=== PATIENT | female | born 1965 | race American Indian/Alaskan Native ===

== ENCOUNTER 2016-10-26 21:09 | Observation (INO) | payer OTHER, BC ==
[2016-10-26 21:10] VITALS: BMI 30.9
[2016-10-26] MEDS ORDERED: Sodium Chloride 0.9% 1,000 ML IV ONE ×2 (21:32)
[2016-10-26] MEDS ORDERED: (Novolin R) Insulin Human Regular 100 units/ml vial IV STA (21:32)
--- NOTE | 2016-10-26 21:32 | C.PDOC ---
History Of Present Illness A 51 y/o female presents to the ER c/o high blood sugar that was more than 600 today. Patient reports feeling SOB, frequent urination, weakness, and dry mouth. Denies fever, chills, chest pain, abdominal pain, palpitations, diaphoresis, or any other complaints. Time Seen by Provider: 10/26/16 21:29 History Per: Patient History/Exam Limitations: no limitations Onset/Duration Of Symptoms: Hrs Current Symptoms Are (Timing): Still Present Severity: Mild Current Diabetic Medications: Insulin Associated Infectious Symptoms: Urinary Frequency, Other (Dry mouth, weakness, SOB) Recent travel outside of the [place]: No Additional History Per: Patient Past Medical History Reviewed: Historical Data, Nursing Documentation, Vital Signs Vital Signs: Last Vital Signs Temp 98 F 10/26/16 21:28 Pulse 95 H 10/26/16 21:28 Resp 18 10/26/16 21:28 BP 151/81 H 10/26/16 21:28 Pulse Ox 95 10/26/16 22:41 - Medical History PMH: Anemia, Arthritis, Depression, Diabetes, HTN, Hypercholesterolemia, TIA Denies: Hepatitis, HIV, Chronic Kidney Disease, Seizures, Sexually Transmitted Disease - [facility] Procedures FLUOROSCOPY OF LEFT HEART USING LOW OSMOLAR CONTRAST (05/08/15) FLUOROSCOPY OF MULT COR ART USING L OSM CONTRAST (05/08/15) MEASURE OF CARDIAC SAMPL & PRESSURE, L HEART, PERC APPROACH (05/08/15) SPINAL TAP (09/04/12) Family History: States: Unknown Family Hx - Social History Hx Tobacco Use: No Hx Alcohol Use: No Hx Substance Use: No Review Of Systems Except As Marked, All Systems Reviewed And Found Negative. Constitutional: Positive for: Weakness. Negative for: Fever, Chills, Sweats ENT: Positive for: Other (Dry mouth) Cardiovascular: Negative for: Chest Pain, Palpitations Respiratory: Positive for: Shortness of Breath Gastrointestinal: Negative for: Abdominal Pain Genitourinary: Positive for: Frequency Physical Exam - Physical Exam Appears: Non-toxic, No Acute Distress, Other Skin: Warm, Dry Head: Atraumatic, Normacephalic Neck: Supple Cardiovascular: Rhythm Regular Respiratory: Normal Breath Sounds, No Rales, No Rhonchi, No Wheezing Gastrointestinal/Abdominal: Soft, No Tenderness Back: Normal Inspection, No CVA Tenderness Neurological/Psych: Oriented x3 (Awake and alert), Normal Speech, Normal Cognition, Other (No focal deficit) ED Course And Treatment - Laboratory Results Result Diagrams: 10/26/16 21:42 10/26/16 21:42 O2 Sat by Pulse Oximetry: 95 (RA) Pulse Ox Interpretation: Normal - Radiology CXR: Interpreted by Me, Viewed By Me CXR Interpretation: Yes: No Acute Disease. No: Infiltrates (essentially negative portable chest film.) Medical Decision Making Medical Decision Making: Impression: A 51 y/o female presents to the ER c/o high blood sugar that is more than 600 today. Plans: * EKG * ABG * Blood work up * CXR * Insulin * IV fluids * UA Disposition Discussed With Dr.: Chris Saeed Jr. Doctor Will See Patient In The: Hospital Counseled Patient/Family Regarding: Diagnosis - Disposition Disposition: HOSPITALIZED Disposition Time: 22:41 Condition: STABLE - POA Present On Arrival: None - Clinical Impression Clinical Impression: Hyperglycemia, Diabetes mellitus - Scribe Statement The provider has reviewed the documentation as recorded by the Scribsen corbett All medical record entries made by the Lisandraibsen were at my direction and personally dictated by me. I have reviewed the chart and agree that the record accurately reflects my personal performance of the history, physical exam, medical decision making, and the department course for this patient. I have also personally directed, reviewed, and agree with the discharge instructions and disposition.
[2016-10-26 21:45] LABS: BASO % 0.8 % (0.0-2.0); EOS # 0.1 K/uL (0.0-0.7); EOS % 1.2 % (0.0-4.0); HEMATOCRIT 36.2 % (34.0-47.0); LYMPH # 1.5 K/uL (1.0-4.3); LYMPH % 23.2 % (20.0-40.0); MEAN CORPUSCULAR HEMOGLOBIN 28.4 pg (27.0-31.0); MEAN CORPUSCULAR HGB CONC 34.2 g/dL (33.0-37.0); MEAN PLATELET VOLUME 8.2 fL (7.2-11.7); MONO # 0.4 K/uL (0.0-0.8); MONO % 6.9 % (0.0-10.0); RED CELL DISTRIBUTION WIDTH 13.3 % (11.5-14.5); WHITE BLOOD COUNT 6.3 K/uL (4.8-10.8)
[2016-10-26] MEDS ORDERED: Insulin Human Regular 100 UNIT in Sodium Chloride 0.9% 99 ML IV SCH (21:45)
[2016-10-26] MEDS ORDERED: (Novolin R) Insulin Human Regular 100 units/ml vial ONE (21:48)
[2016-10-26 21:53] LABS: CHLORIDE 95 mmol/L (98-107); SODIUM 131 mmol/L (132-148)
[2016-10-26 21:54] LABS: POTASSIUM 4.3 mmol/L (3.6-5.2)
[2016-10-26 21:56] LABS: ALKALINE PHOSPHATASE 122 U/L (38-126); ALT/SGPT 44 U/L (9-52); AST/SGOT 23 U/L (14-36); BILIRUBIN,TOTAL 0.8 mg/dL (0.2-1.3); BLOOD UREA NITROGEN 11 mg/dL (7-17); CARBON DIOXIDE 23 mmol/L (22-30); GFR AFRICAN-AMERICAN > 60
[2016-10-26 21:57] LABS: CALCIUM 9.5 mg/dl (8.6-10.4)
[2016-10-26 21:58] LABS: GLUCOSE,RANDOM 524 mg/dL (65-105)
[2016-10-26 22:04] LABS: ABG ALLEN TEST POS; ARTERIAL BLOOD HGB O2 SAT 93.1 % (95.0-98.0); CARBOXYHEMOGLOBIN 2.1 % (0.5-1.5); DRAW SITE RRA; HHB 3.4 % (0.0-5.0); METHEMOGLOBIN 1.4 % (0.0-3.0)
[2016-10-26 22:07] LABS: URINE BILIRUBIN NEGATIVE (NEGATIVE); URINE BLOOD NEGATIVE (NEGATIVE); URINE COLOR Colorless (YELLOW); URINE GLUCOSE (UA) 3+ mg/dL (Normal); URINE KETONE NEGATIVE (NEGATIVE); URINE LEUKOCYTE ESTERASE NEG Leu/uL (Negative); URINE PROTEIN NEGATIVE (NEGATIVE); URINE UROBILINOGEN NORMAL mg/dL (0.2-1.0); WBC URINE 2 /hpf (0-5)
--- NOTE | 2016-10-27 00:25 | CP.PCM.HP ---
History of Present Illness - History of Present Illness History of Present Illness: cc: "My sugar was high" Patient is a 51 year old female with PMHx DM, HTN, arthritis who presents to the ED with complaint of elevated blood sugar. Patient states around 8PM she checked her blood sugar and her glucometer gave her a high sugar warning of greater than 600. Patient states that her sugar normally is around 450 but not usually as high as 600. Patient states she gave herself 25 units of levemir at the time of the high reading and then came to the ED. Patient was given 8 units IV insulin in the ED and her sugar decreased from 524 to 320. Patient complains of headache, dry mouth, increased thirst and more frequent urination. Patient denies polyphagia. Patient also admits to alternating diarrhea and constipation. Patient reports increased stress since her daughter was murdered in 05/2015 and is caring for her grandchildren. 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 Patient admits she is eating more fast foods in between jobs and is not always able to make healthy choices. patient states she is using levemir 25 units daily instead of the prescribe 10 units because of her elevated sugars. Patient reports she only takes her lisinopril when she thinks she needs it. 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 Present on Admission - Present on Admission Any Indicators Present on Admission: Yes History of Uncontrolled Diabetes: Yes Review of Systems - Constitutional Constitutional: absent: Chills, Fever, Weight Loss - EENT Eyes: absent: Blurred Vision Nose/Mouth/Throat: absent: Nasal Congestion - Cardiovascular Cardiovascular: absent: Chest Pain, Dyspnea - Respiratory Respiratory: absent: Cough, Dyspnea - Gastrointestinal Gastrointestinal: Constipation, Loose Stools. absent: Nausea, Vomiting - Genitourinary Genitourinary: Urinary Frequency. absent: Dysuria - Musculoskeletal Musculoskeletal: Back Pain - Integumentary Integumentary: absent: Rash - Neurological Neurological: absent: Focal Weakness - Endocrine Endocrine: Polydipsia, Polyuria. absent: Polyphagia Past Patient History - Infectious Disease Hx of Infectious Diseases: None - Tetanus Immunizations Tetanus Immunization: Unknown - Past Medical History & Family History Past Medical History?: Yes - Past Social History Smoking Status: Never Smoked - CARDIAC Hx Hypercholesterolemia: Yes Hx Hypertension: Yes - PULMONARY Hx Tuberculosis: No - NEUROLOGICAL Hx Seizures: No Hx Transient Ischemic Attacks (TIA): Yes - HEENT Hx HEENT Problems: No - RENAL Hx Chronic Kidney Disease: No - ENDOCRINE/METABOLIC Hx Diabetes Mellitus Type 2: Yes - HEMATOLOGICAL/ONCOLOGICAL Hx Anemia: Yes Hx Human Immunodeficiency Virus (HIV): No - INTEGUMENTARY Hx Dermatological Problems: No - MUSCULOSKELETAL/RHEUMATOLOGICAL Hx Arthritis: Yes - GASTROINTESTINAL Hx Gastrointestinal Disorders: No - GENITOURINARY/GYNECOLOGICAL Hx Sexually Transmitted Disorders: No - PSYCHIATRIC Hx Depression: Yes Hx Substance Use: No - SURGICAL HISTORY Hx Section: Yes Hx Hysterectomy: Yes Hx Orthopedic Surgery: Yes (back) - ANESTHESIA Hx Anesthesia: Yes Hx Anesthesia Reactions: No Meds Allergies/Adverse Reactions: Allergies Allergy/AdvReac Type Severity Reaction Status Date / Time No Known Allergies Allergy Verified 05/08/15 15:41 Physical Exam - Constitutional Appears: Non-toxic, No Acute Distress - Head Exam Head Exam: ATRAUMATIC, NORMOCEPHALIC - Eye Exam Eye Exam: EOMI - ENT Exam ENT Exam: Mucous Membranes Dry - Respiratory Exam Respiratory Exam: Clear to Auscultation Bilateral, NORMAL BREATHING PATTERN - Cardiovascular Exam Cardiovascular Exam: +S1, +S2 - GI/Abdominal Exam GI & Abdominal Exam: Normal Bowel Sounds, Soft. absent: Tenderness - Extremities Exam Extremities exam: Positive for: normal inspection. Negative for: calf tenderness, pedal edema - Neurological Exam Neurological exam: Alert, Oriented x3 - Psychiatric Exam Psychiatric exam: Normal Affect - Skin Skin Exam: Dry, Warm Results - Vital Signs Recent Vital Signs: Last Vital Signs Temp 98.4 F 10/26/16 23:53 Pulse 82 10/26/16 23:53 Resp 18 10/26/16 23:53 BP 123/53 L 10/26/16 23:53 Pulse Ox 97 10/26/16 23:53 - Labs Result Diagrams: 10/26/16 21:42 10/26/16 21:42 Assessment & Plan - Assessment and Plan (Free Text) Assessment: Hyperglycemia, uncontrolled diabetes last known A1c 10.1 in 05/2015 will check new A1c will restart home meds metformin 1000mg BID, glimepiride 4mg BID, levemir 25u daily accuchecks ACHS with sliding scale coverage sugar decreased form 524 to 320 after 8 units IV insulin serum ketones negative UA with 3+ glucose anion gap 13 ABG pH 7.39 patient not acidotic will continue NS @ 100cc/h mod consistent carb diet diabetic education HTN contine home medications lisinopril 20mg daily will start HCTZ 12.5mg HLD continue home medication crestor 20mg daily Prophylactic measure protonix 40mg daily SCDs further management per Dr. Saeed
[2016-10-27 06:11] LABS: BASO % 0.7 % (0.0-2.0); EOS # 0.1 K/uL (0.0-0.7); EOS % 1.7 % (0.0-4.0); HEMATOCRIT 34.6 % (34.0-47.0); LYMPH # 1.3 K/uL (1.0-4.3); MEAN CELL VOLUME 82.3 fL (81.0-99.0); MEAN CORPUSCULAR HEMOGLOBIN 27.6 pg (27.0-31.0); MEAN CORPUSCULAR HGB CONC 33.5 g/dL (33.0-37.0); MEAN PLATELET VOLUME 8.4 fL (7.2-11.7); MONO # 0.4 K/uL (0.0-0.8); MONO % 8.1 % (0.0-10.0); NRBC % 0.1 % (0.0-2.0); RED CELL DISTRIBUTION WIDTH 13.1 % (11.5-14.5); WHITE BLOOD COUNT 4.9 K/uL (4.8-10.8)
[2016-10-27] MEDS ORDERED: (Novolin R) Insulin Human Regular 100 units/ml vial SC SCH (07:30)
[2016-10-27 07:48] LABS: CHLORIDE 105 mmol/L (98-107)
[2016-10-27 07:49] LABS: POTASSIUM 4.3 mmol/L (3.6-5.2); SODIUM 138 mmol/L (132-148)
[2016-10-27 07:51] LABS: BLOOD UREA NITROGEN 9 mg/dL (7-17); CARBON DIOXIDE 24 mmol/L (22-30); CHOLESTEROL 225 mg/dL (0-199); GFR AFRICAN-AMERICAN > 60
[2016-10-27 07:52] LABS: ALKALINE PHOSPHATASE 94 U/L (38-126); ALT/SGPT 39 U/L (9-52); AST/SGOT 21 U/L (14-36); CALCIUM 8.6 mg/dl (8.6-10.4); GLUCOSE,RANDOM 277 mg/dL (65-105)
[2016-10-27 07:54] LABS: THYROID STIMULATING HORMONE 2.11 mIU/L (0.46-4.68)
[2016-10-27 08:00] VITALS: BP 136/76; PULSE 73; RESP 20; TEMP 98.3; O2SAT 98
[2016-10-27] MEDS: (Novolin R) Insulin Human Regular 100 units/ml vial SC SCH ×3 (08:20→16:35)
--- NOTE | 2016-10-27 09:41 | CP.PCM.PN ---
Objective - Vital Signs/Intake and Output Vital Signs (last 24 hours): Temp Pulse Resp BP Pulse Ox 98.3 F 73 20 136/76 98 10/27/16 07:57 10/27/16 07:57 10/27/16 07:57 10/27/16 07:57 10/27/16 07:57 - Medications Medications: Current Medications Glimepiride (Amaryl) 4 mg PO BID [facility] Hydrochlorothiazide (Microzide) 12.5 mg PO DAILY [facility] Insulin Detemir (Levemir) 25 unit SC BID [facility] Insulin Human Regular (Novolin R) 0 unit SC ACHS [facility] PRN Reason: Protocol Last Admin: 10/27/16 08:20 Dose: 4 unit Lisinopril (Zestril) 20 mg PO DAILY [facility] Metformin HCl (Glucophage) 1,000 mg PO BID [facility] Pantoprazole Sodium (Protonix Ec Tab) 40 mg PO DAILY [facility] Pneumococcal Polyvalent Vaccine (Pneumovax 23 Vaccine) 0.5 ml IM .ONCE ONE Stop: 10/29/16 10:01 Rosuvastatin Calcium (Crestor) 20 mg PO HS BILL - Labs Labs: 10/27/16 06:00 10/27/16 06:00
[2016-10-27] MEDS ORDERED: Pantoprazole 40 mg EC Tab PO SCH (10:00)
[2016-10-27] MEDS ORDERED: Insulin Detemir 100 units/ml Vial (Levemir) SC SCH ×4 (10:00)
--- NOTE | 2016-10-27 10:09 | RAD ---
PROCEDURE: CHEST RADIOGRAPH, 1 VIEW HISTORY: Diabetic COMPARISON: Prior chest radiographs 05/08/2015 FINDINGS: LUNGS: Images captured add expiration phase. No definite acute infiltrate or pleural effusion identified or other significant interval change. PLEURA: No pneumothorax or pleural fluid seen. CARDIOVASCULAR: Normal. OSSEOUS STRUCTURES: No significant abnormalities. VISUALIZED UPPER ABDOMEN: Normal. OTHER FINDINGS: None. IMPRESSION: No definite acute interval infiltrate or pleural effusion.
[2016-10-27] MEDS ORDERED: Enoxaparin 40 mg Syringe SC SCH (11:45)
--- NOTE | 2016-10-27 16:23 | CP.PCM.DIS ---
Provider - Provider Date of Admission: 10/26/16 22:41 Attending physician: Chris Saeed Jr, MD Time Spent in preparation of Discharge (in minutes): 55 Hospital Course - Lab Results Lab Results: Most Recent Lab Values WBC 4.9 K/uL (4.8-10.8) 10/27/16 06:00 RBC 4.20 Mil/uL (3.80-5.20) 10/27/16 06:00 Hgb 11.6 g/dL (11.0-16.0) 10/27/16 06:00 Hct 34.6 % (34.0-47.0) 10/27/16 06:00 MCV 82.3 fL (81.0-99.0) 10/27/16 06:00 MCH 27.6 pg (27.0-31.0) 10/27/16 06:00 MCHC 33.5 g/dL (33.0-37.0) 10/27/16 06:00 RDW 13.1 % (11.5-14.5) 10/27/16 06:00 Plt Count 236 K/uL (130-400) 10/27/16 06:00 MPV 8.4 fL (7.2-11.7) 10/27/16 06:00 Neut % (Auto) 62.5 % (50.0-75.0) 10/27/16 06:00 Lymph % (Auto) 27.0 % (20.0-40.0) 10/27/16 06:00 [place] % (Auto) 8.1 % (0.0-10.0) 10/27/16 06:00 Eos % (Auto) 1.7 % (0.0-4.0) 10/27/16 06:00 Baso % (Auto) 0.7 % (0.0-2.0) 10/27/16 06:00 Neut # 3.1 K/uL (1.8-7.0) 10/27/16 06:00 Lymph # 1.3 K/uL (1.0-4.3) 10/27/16 06:00 [place] # 0.4 K/uL (0.0-0.8) 10/27/16 06:00 Eos # 0.1 K/uL (0.0-0.7) 10/27/16 06:00 Baso # 0.0 K/uL (0.0-0.2) 10/27/16 06:00 Puncture Site Rra 10/26/16 22:01 pCO2 40 mm/Hg (35-45) 10/26/16 22:01 pO2 69 mm/Hg (80-100) L 10/26/16 22:01 HCO3 24.3 mmol/L (21-28) 10/26/16 22:01 ABG pH 7.39 (7.35-7.45) 10/26/16 22:01 ABG Total CO2 25.4 mmol/L (22-28) 10/26/16 22:01 ABG O2 Saturation 96.5 % (95-98) 10/26/16 22:01 ABG Base Excess -0.7 mmol/L (-2.0-3.0) 10/26/16 22:01 ABG Hemoglobin 11.4 g/dL (11.7-17.4) L 10/26/16 22:01 ABG Carboxyhemoglobin 2.1 % (0.5-1.5) H 10/26/16 22:01 POC ABG HHb (Measured) 3.4 % (0.0-5.0) 10/26/16 22:01 ABG Methemoglobin 1.4 % (0.0-3.0) 10/26/16 22:01 Jet Test Pos 10/26/16 22:01 A-a O2 Difference 31.0 mm/Hg 10/26/16 22:01 Respiratory Index 0.4 10/26/16 22:01 Hgb O2 Saturation 93.1 % (95.0-98.0) L 10/26/16 22:01 Liter Flow 0 10/26/16 22:01 FiO2 21.0 % 10/26/16 22:01 Sodium 138 mmol/L (132-148) 10/27/16 06:00 Potassium 4.3 mmol/L (3.6-5.2) 10/27/16 06:00 Chloride 105 mmol/L (98-107) 10/27/16 06:00 Carbon Dioxide 24 mmol/L (22-30) 10/27/16 06:00 Anion Gap 13 (10-20) 10/27/16 06:00 BUN 9 mg/dL (7-17) 10/27/16 06:00 Creatinine 0.6 MG/DL (0.7-1.2) L 10/27/16 06:00 Est GFR ( Amer) > 60 10/27/16 06:00 Est GFR (Non-Af Amer) > 60 10/27/16 06:00 POC Glucose (mg/dL) 283 mg/dL (65-110) H 10/27/16 11:03 Random Glucose 277 mg/dL (65-105) H 10/27/16 06:00 Hemoglobin A1c 10.5 % (4.2-6.5) H 10/27/16 06:00 Calcium 8.6 mg/dl (8.6-10.4) 10/27/16 06:00 Total Bilirubin 1.0 mg/dL (0.2-1.3) 10/27/16 06:00 AST 21 U/L (14-36) 10/27/16 06:00 ALT 39 U/L (9-52) 10/27/16 06:00 Alkaline Phosphatase 94 U/L (38-126) 10/27/16 06:00 Total Protein 7.0 g/dL (6.3-8.3) 10/27/16 06:00 Albumin 3.4 g/dL (3.5-5.0) L 10/27/16 06:00 Globulin 3.5 gm/dL (2.2-3.9) 10/27/16 06:00 Albumin/Globulin Ratio 1.0 (1.0-2.1) 10/27/16 06:00 Triglycerides 231 mg/dL (0-149) H D 10/27/16 06:00 Cholesterol 225 mg/dL (0-199) H 10/27/16 06:00 LDL Cholesterol Direct 159 mg/dL (0-129) H 10/27/16 06:00 HDL Cholesterol 34 mg/dL (30-70) 10/27/16 06:00 TSH 3rd Generation 2.11 mIU/L (0.46-4.68) 10/27/16 06:00 Urine Color Colorless (YELLOW) 10/26/16 21:55 Urine Clarity Clear (Clear) 10/26/16 21:55 Urine pH 6.0 (5.0-8.0) 10/26/16 21:55 Ur Specific [place] 1.020 (1.003-1.030) 10/26/16 21:55 Urine Protein Negative mg/dL (NEGATIVE) 10/26/16 21:55 Urine Glucose (UA) 3+ mg/dL (Normal) H 10/26/16 21:55 Urine Ketones Negative mg/dL (NEGATIVE) 10/26/16 21:55 Urine Blood Negative (NEGATIVE) 10/26/16 21:55 Urine Nitrate Negative (NEGATIVE) 10/26/16 21:55 Urine Bilirubin Negative (NEGATIVE) 10/26/16 21:55 Urine Urobilinogen Normal mg/dL (0.2-1.0) 10/26/16 21:55 Ur Leukocyte Esterase Neg Jennyfer/uL (Negative) 10/26/16 21:55 Urine WBC (Auto) 2 /hpf (0-5) 10/26/16 21:55 Serum Ketones Negative (NEGATIVE) 10/26/16 21:42 - Hospital Course Hospital Course: Upon Admission: cc: "My sugar was high" Patient is a 51 year old female with PMHx DM, HTN, arthritis who presents to the ED with complaint of elevated blood sugar. Patient states around 8PM she checked her blood sugar and her glucometer gave her a high sugar warning of greater than 600. Patient states that her sugar normally is around 450 but not usually as high as 600. Patient states she gave herself 25 units of levemir at the time of the high reading and then came to the ED. Patient was given 8 units IV insulin in the ED and her sugar decreased from 524 to 320. Patient complains of headache, dry mouth, increased thirst and more frequent urination. Patient denies polyphagia. Patient also admits to alternating diarrhea and constipation. Patient reports increased stress since her daughter was murdered in 05/2015 and is caring for her grandchildren. 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 Patient admits she is eating more fast foods in between jobs and is not always able to make healthy choices. patient states she is using levemir 25 units daily instead of the prescribe 10 units because of her elevated sugars. Patient reports she only takes her lisinopril when she thinks she needs it. 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 Throughout Hospital Course: Patient was admitted for hyperglycemia. Patient was given insulin the ED to reduce the high blood sugar. sugar decreased form 524 to 320 after 8 units IV insulin. serum ketones negative. UA with 3+ glucose anion gap 13 ABG pH 7.39 patient not acidotic. HGA1C was 10.5 which has increased from 10.1 on 02/2016. Patient's levemir was increased to 30units SC BID. Patient is to follow up with Dr. Saeed for closer glucose control. This is a brief summary of the patient's hospital course. Please review EMR. Discharge Exam - Head Exam Head Exam: ATRAUMATIC, NORMOCEPHALIC - Eye Exam Eye Exam: EOMI, Normal appearance, PERRL Pupil Exam: NORMAL ACCOMODATION - ENT Exam ENT Exam: Normal Exam - Respiratory Exam Respiratory Exam: Clear to PA & Lateral, NORMAL BREATHING PATTERN. absent: Decreased Breath Sounds - Cardiovascular Exam Cardiovascular Exam: REGULAR RHYTHM, RRR - GI/Abdominal Exam GI & Abdominal Exam: Normal Bowel Sounds, Soft. absent: Distended, Tenderness - Extremities Exam Extremities exam: normal inspection, pedal pulses present - Neurological Exam Neurological exam: Alert, CN II-XII Intact, Oriented x3 - Psychiatric Exam Psychiatric exam: Normal Affect, Normal Mood - Skin Skin Exam: Dry, Intact, Normal Color, Warm Discharge Plan - Discharge Medications Prescriptions: Insulin Detemir [Levemir] 30 unit SC Q12 #1 vial - Follow Up Plan Condition: STABLE Disposition: HOME/ ROUTINE Instructions: Diabetic Ketoacidosis (DC), Diabetic Ketoacidosis (GEN) Additional Instructions: Patient is to continue taking her Metformin, Glimepiride, lisinopril, AND start taking levemir 30 units every 12 hours. If your sugars are continuously higher than 200, please call. Dr. Saeed. Please control your diet to better help your sugars go down. Follow up with Dr. Saeed in 1 week. Please return to the ED if your symptoms worsen or return.
--- NOTE | 2016-10-28 12:30 | CARD ---
APPROVED REPORT EKG Measurement Heart [id number] <Conclusion> Normal sinus rhythm Moderate voltage criteria for LVH, may be normal variant Borderline ECG
[2016-10-29] MEDS ORDERED: Pneumococcal 23-Valent Vaccine IM ONE (10:00)
== END 2016-10-27 18:00 | disposition home or self-care (01) ==
LOC: C.ER 21:09 → C.9E 22:41 → INTOOBSV 22:41 → C.3T 23:11
PROVIDERS: ADMIT Internal Medicine; ATTEND Internal Medicine
DX: E11.65 Type 2 diabetes mellitus with hyperglycemia (principal); I10 Essential (primary) hypertension; M19.90 Unspecified osteoarthritis, unspecified site; K59.00 Constipation, unspecified; R19.7 Diarrhea, unspecified; Z98.1 Arthrodesis status; Z83.3 Family history of diabetes mellitus; Z82.49 Family history of ischemic heart disease and other diseases of the circulatory system; Z80.0 Family history of malignant neoplasm of digestive organs; E78.5 Hyperlipidemia, unspecified
CPT/HCPCS: 36415; 71010; 80053; 80061; 81001; 82009; 82803; 82948; 83036; 84443; 85025; 93005; 96374; 99283; G0378; J1650; J7040

== ENCOUNTER 2017-07-06 13:20 | Observation (INO) | payer OTHER, BC ==
[2017-07-06 13:21] VITALS: BMI 30.9
[2017-07-06 13:58] LABS: BASO % 0.6 % (0.0-2.0); EOS # 0.1 K/uL (0.0-0.7); EOS % 1.1 % (0.0-4.0); HEMOGLOBIN 12.4 g/dL (11.0-16.0); LYMPH # 1.1 K/uL (1.0-4.3); LYMPH % 23.8 % (20.0-40.0); MEAN CELL VOLUME 82.1 fL (81.0-99.0); MEAN CORPUSCULAR HEMOGLOBIN 28.1 pg (27.0-31.0); MEAN CORPUSCULAR HGB CONC 34.3 g/dL (33.0-37.0); MEAN PLATELET VOLUME 8.6 fL (7.2-11.7); MONO # 0.4 K/uL (0.0-0.8); MONO % 7.9 % (0.0-10.0); NEUT # 3.2 K/uL (1.8-7.0); NEUT % 66.6 % (50.0-75.0); NRBC % 0.1 % (0.0-2.0); RBC 4.41 Mil/uL (3.80-5.20); RED CELL DISTRIBUTION WIDTH 13.5 % (11.5-14.5); WHITE BLOOD COUNT 4.8 K/uL (4.8-10.8)
[2017-07-06 14:29] LABS: ALB/GLOB RATIO 1.1 (1.0-2.1); ALBUMIN 4.2 g/dL (3.5-5.0); ALT/SGPT 44 U/L (9-52); AST/SGOT 36 U/L (14-36); BLOOD UREA NITROGEN 12 mg/dL (7-17); CALCIUM 9.4 mg/dl (8.6-10.4); GFR AFRICAN-AMERICAN > 60; GFR NON-AFRICAN AMERICAN > 60
[2017-07-06] MEDS ORDERED: Sodium Chloride 0.9% 1,000 ML IV ONE (14:33)
--- NOTE | 2017-07-06 15:22 | C.PDOC ---
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 At ED patient reports she developed headache, cramping leg pain and states she feels "weak". Chest pain is on left side and denies trauma, sob, nausea, vomiting, cough or any other complaints at this time. Time Seen by Provider: 07/06/17 13:38 Chief Complaint (Nursing): Medical Clearance History Per: Patient History/Exam Limitations: no limitations Onset/Duration Of Symptoms: Hrs Current Symptoms Are (Timing): Still Present Past Medical History Reviewed: Historical Data, Nursing Documentation, Vital Signs Vital Signs: Last Vital Signs Temp 98.5 F 07/06/17 16:58 Pulse 76 07/06/17 16:58 Resp 19 07/06/17 16:58 BP 175/82 H 07/06/17 16:58 Pulse Ox 96 07/06/17 16:58 - Medical History PMH: Anemia, Arthritis, Back Problems (SPINAL FUSION), Depression, Diabetes, HTN , Hypercholesterolemia, TIA Surgical History: No Surg Hx - [facility] Procedures FLUOROSCOPY OF LEFT HEART USING LOW OSMOLAR CONTRAST (05/08/15) FLUOROSCOPY OF MULT COR ART USING L OSM CONTRAST (05/08/15) MEASURE OF CARDIAC SAMPL & PRESSURE, L HEART, PERC APPROACH (05/08/15) SPINAL TAP (09/04/12) Family History: States: No Known Family Hx - Social History Hx Tobacco Use: No Hx Alcohol Use: No Hx Substance Use: No Review Of Systems Constitutional: Negative for: Fever, Chills Cardiovascular: Positive for: Chest Pain Gastrointestinal: Negative for: Nausea, Vomiting Musculoskeletal: Positive for: Back Pain, Leg Pain Skin: Negative for: Rash Neurological: Positive for: Headache Physical Exam - Physical Exam Appears: Non-toxic, No Acute Distress Skin: Warm, Dry, No Rash Head: Atraumatic, Normacephalic Eye(s): bilateral: Normal Inspection, PERRL, EOMI Oral Mucosa: Moist Throat: No Erythema, No Exudate Neck: Normal ROM, Supple Chest: Symmetrical, No Tenderness Cardiovascular: Rhythm Regular, No Friction Rub, No Murmur Respiratory: Normal Breath Sounds, No Rales, No Rhonchi, No Wheezing Gastrointestinal/Abdominal: Soft, No Tenderness, No Guarding, No Rebound Back: Normal Inspection, No CVA Tenderness Extremity: Normal ROM, Capillary Refill (<2 seconds), No Swelling Neurological/Psych: Oriented x3, Normal Speech, Normal Cognition Gait: Steady ED Course And Treatment - Laboratory Results Result Diagrams: 07/06/17 13:42 07/06/17 13:42 ECG: Interpreted By Me ECG Rhythm: Sinus Rhythm ECG Interpretation: Normal Rate From EC (bpm) O2 Sat by Pulse Oximetry: 99 (RA) Pulse Ox Interpretation: Normal - Radiology CXR: Interpreted by Me CXR Interpretation: Yes: No Acute Disease. No: Infiltrates Medical Decision Making Medical Decision Making: Plan: IV fluids, Aspirin and Tylenol administered Progress: D/w Dr. Starr who is covering for Dr. 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 - Scribe Statement The provider has reviewed the documentation as recorded by the Scribe Carol Perez All medical record entries made by the Richard were at my direction and personally dictated by me. I have reviewed the chart and agree that the record accurately reflects my personal performance of the history, physical exam, medical decision making, and the department course for this patient. I have also personally directed, reviewed, and agree with the discharge instructions and disposition.
[2017-07-06 16:37] LABS: HCG,QUALITATIVE URINE NEGATIVE (NEGATIVE)
[2017-07-06] MEDS ORDERED: (Novolin R) Insulin Human Regular 100 units/ml vial IV STA (16:42)
[2017-07-06 16:43] LABS: URINE BACTERIA OCC (<OCC); URINE BILIRUBIN NEGATIVE (NEGATIVE); URINE BLOOD NEGATIVE (NEGATIVE); URINE CLARITY Clear (Clear); URINE COLOR Yellow (YELLOW); URINE GLUCOSE (UA) 3+ mg/dL (Normal); URINE LEUKOCYTE ESTERASE NEG Leu/uL (Negative); URINE PROTEIN 2+ mg/dL (NEGATIVE); URINE UROBILINOGEN NORMAL mg/dL (0.2-1.0)
[2017-07-06] MEDS ORDERED: Morphine 4 MG/ML VIAL ONE (17:17)
[2017-07-06] MEDS ORDERED: (Novolin R) Insulin Human Regular 100 units/ml vial ONE (17:46)
--- NOTE | 2017-07-06 17:54 | RAD ---
HISTORY: COMPARISON: 10/26/2016. TECHNIQUE: Chest PA and lateral FINDINGS: LINES AND TUBES: None. LUNG AND PLEURA: The lungs are well inflated and clear. No pleural effusion or pneumothorax. HEART AND MEDIASTINUM: The heart is not enlarged. The hilar and mediastinal contours are within normal limits. SKELETAL STRUCTURES: The bony structures are within normal limits for the patient's age. VISUALIZED UPPER ABDOMEN: Normal. OTHER FINDINGS: None. IMPRESSION: No active pulmonary disease.
[2017-07-06] MEDS: Sodium Chloride 0.9% 1,000 ML IV SCH (22:10)
[2017-07-06] MEDS ORDERED: Sodium Chloride 0.9% 1,000 ML ONE (22:13)
[2017-07-06 22:33] VITALS: O2SAT 95
[2017-07-06] MEDS: (Novolin R) Insulin Human Regular 100 units/ml vial SC SCH (22:33)
[2017-07-06] MEDS: Insulin Detemir 100 units/ml Vial (Levemir) SC SCH (22:57)
[2017-07-07 07:11] LABS: HEMOGLOBIN 11.5 g/dL (11.0-16.0); MEAN CORPUSCULAR HEMOGLOBIN 27.9 pg (27.0-31.0); MEAN PLATELET VOLUME 8.5 fL (7.2-11.7); RBC 4.13 Mil/uL (3.80-5.20); RED CELL DISTRIBUTION WIDTH 13.4 % (11.5-14.5); WHITE BLOOD COUNT 4.3 K/uL (4.8-10.8)
[2017-07-07 07:45] LABS: BLOOD UREA NITROGEN 10 mg/dL (7-17); CALCIUM 8.8 mg/dl (8.6-10.4); GFR AFRICAN-AMERICAN > 60; GFR NON-AFRICAN AMERICAN > 60
[2017-07-07] MEDS: (Novolin R) Insulin Human Regular 100 units/ml vial SC SCH ×4 (08:30→21:11)
[2017-07-07 08:56] LABS: CK-MB 0.35 ng/mL (0.0-3.38)
[2017-07-07] MEDS: Insulin Detemir 100 units/ml Vial (Levemir) SC SCH ×2 (10:33→21:27)
[2017-07-07] MEDS: Enoxaparin 40 mg Syringe SC SCH (10:33)
--- NOTE | 2017-07-07 12:35 | CP.PCM.HP ---
History of Present Illness - History of Present Illness History of Present Illness: Chief Complaint : Chest pain History Of Present Illness Patient is a middle aged AA female with history of TIA, HTN, DM on oral medications , complaince is questionable and High Cholesterols presents to ED with c/o onset back pain radiating to front chest area 1 hour HOT [employer]. At ED patient reports she developed headache, cramping leg pain and states she feels "weak". Chest pain is on left side and denies trauma, sob, nausea, vomiting, cough or any other complaints at this time.there is no h/o nausea, vomiting, hempptysis, melena Present on Admission - Present on Admission Any Indicators Present on Admission: Yes Review of Systems - Review of Systems Systems not reviewed;Unavailable: Acuity of Condition - Constitutional Constitutional: Fatigue, Lethargy - EENT Eyes: absent: As Per HPI, Blind Spots, Blurred Vision, Change in Vision, Decreased Night Vision, Diplopia, Discharge, Dry Eye, Exophthalmos, Floaters, Irritation, Itchy Eyes, Loss of Peripheral Vision, Pain, Photophobia, Requires Corrective Lenses, Sees Flashes, Spots in Vision, Tunnel Vision, Other Visual Disturbances, Loss of Vision, Other Ears: absent: As Per HPI, Decreased Hearing, Ear Discharge, Ear Pain, Tinnitus, Abnormal Hearing, Disequilibrium, Dizziness, Other Nose/Mouth/Throat: absent: As Per HPI, Epistaxis, Nasal Congestion, Nasal Discharge, Nasal Obstruction, Nasal Trauma, Nose Pain, Post Nasal Drip, Sinus Pain, Sinus Pressure, Bleeding Gums, Change in Voice, Dental Pain, Dry Mouth, Dysphagia, Halitosis, Hoarsness, Lip Swelling, Mouth Lesions, Mouth Pain, Odynophagia, Sore Throat, Throat Swelling, Tongue Swelling, Facial Pain, Neck Pain, Neck Mass, Other - Breasts Breasts: absent: As Per HPI, Change in Shape, Mass, Pain, Nipple Discharge, Nipple Inversion, Skin Changes, Swelling, Other - Cardiovascular Cardiovascular: Chest Pain, Dyspnea. absent: As Per HPI, Acrocyanosis, Chest Pain at Rest, Chest Pain with Activity, Claudication, Diaphoresis, Dyspnea on Exertion, Edema, Irregular Heart Rhythm, Pain Radiating to Arm/Neck/Jaw, Leg Edema, Leg Ulcers, Lightheadedness, Orthopnea, Palpitations, Paroxysmal Nocturnal Dyspnea, Pedal Edema, Radiating Pain, Rapid Heart Rate, Slow Heart Rate, Syncope, Other - Respiratory Respiratory: absent: As Per HPI, Cough, Dyspnea, Hemoptysis, Dyspnea on Exertion , Wheezing, Snoring, Stridor, Pain on Inspiration, Chest Congestion, Excessive Mucous Production, Change in Mucous Color, Pain with Coughing, Other - Gastrointestinal Gastrointestinal: absent: As Per HPI, Abdominal Pain, Belching, Bloating, Change in Bowel Habits, Change in Stool Character, Coffee Ground Emesis, Constipation, Cramping, Diarrhea, Dyspepsia, Dysphagia, Early Satiety, Excessive Flatus, Fecal Incontinence, Heartburn, Hematemesis, Hematochezia, Loose Stools, Melena, Nausea, Odynophagia, Temesmus, Vomiting, Other Past Patient History - Infectious Disease Hx of Infectious Diseases: None - Tetanus Immunizations Tetanus Immunization: Unknown - Past Medical History & Family History Past Medical History?: Yes - Past Social History Smoking Status: Never Smoked - CARDIAC Hx Hypercholesterolemia: Yes Hx Hypertension: Yes - PULMONARY Hx Respiratory Disorders: No Hx Tuberculosis: No - NEUROLOGICAL Hx Transient Ischemic Attacks (TIA): Yes - HEENT Hx HEENT Problems: No - RENAL Hx Chronic Kidney Disease: No - ENDOCRINE/METABOLIC Hx Endocrine Disorders: Yes Hx Diabetes Mellitus Type 2: Yes - HEMATOLOGICAL/ONCOLOGICAL Hx Anemia: Yes - INTEGUMENTARY Hx Dermatological Problems: No - MUSCULOSKELETAL/RHEUMATOLOGICAL Hx Arthritis: Yes - GASTROINTESTINAL Hx Gastrointestinal Disorders: No - GENITOURINARY/GYNECOLOGICAL Hx Sexually Transmitted Disorders: No - PSYCHIATRIC Hx Depression: Yes Hx Substance Use: No - SURGICAL HISTORY Hx Surgeries: Yes Hx Section: Yes Hx Hysterectomy: Yes Hx Orthopedic Surgery: Yes (back) - ANESTHESIA Hx Anesthesia: Yes Hx Anesthesia Reactions: No Hx Malignant Hyperthermia: No Meds Allergies/Adverse Reactions: Allergies Allergy/AdvReac Type Severity Reaction Status Date / Time No Known Allergies Allergy Verified 07/06/17 13:36 Physical Exam - Constitutional Appears: No Acute Distress - Head Exam Head Exam: ATRAUMATIC, NORMAL INSPECTION, NORMOCEPHALIC - Eye Exam Eye Exam: EOMI, Normal appearance, PERRL Pupil Exam: NORMAL ACCOMODATION, PERRL - Respiratory Exam Respiratory Exam: Clear to Auscultation Bilateral, NORMAL BREATHING PATTERN - Cardiovascular Exam Cardiovascular Exam: REGULAR RHYTHM - GI/Abdominal Exam GI & Abdominal Exam: Normal Bowel Sounds, Soft. absent: Tenderness - Rectal Exam Rectal Exam: Deferred - Extremities Exam Extremities exam: Positive for: normal inspection - Back Exam Back exam: paraspinal tenderness - Neurological Exam Neurological exam: Alert, CN II-XII Intact, Normal Gait, Oriented x3, Reflexes Normal - Psychiatric Exam Psychiatric exam: Anxious - Skin Skin Exam: Dry, Intact, Normal Color, Warm Results - Vital Signs Recent Vital Signs: Last Vital Signs Temp 98.0 F 07/07/17 07:05 Pulse 71 07/07/17 07:05 Resp 20 07/07/17 07:05 BP 131/57 L 07/07/17 07:05 Pulse Ox 95 07/07/17 07:05 - Labs Result Diagrams: 07/07/17 07:04 07/07/17 07:04 Labs: Laboratory Results - last 24 hr 07/06/17 07/06/17 07/06/17 13:35 13:42 13:42 WBC 4.8 RBC 4.41 Hgb 12.4 Hct 36.2 MCV 82.1 MCH 28.1 MCHC 34.3 RDW 13.5 Plt Count 235 MPV 8.6 Neut % (Auto) 66.6 Lymph % (Auto) 23.8 [place] % (Auto) 7.9 Eos % (Auto) 1.1 Baso % (Auto) 0.6 Neut # (Auto) 3.2 Lymph # (Auto) 1.1 [place] # (Auto) 0.4 Eos # (Auto) 0.1 Baso # (Auto) 0.0 Sodium 138 Potassium 4.2 Chloride 100 Carbon Dioxide 26 Anion Gap 17 BUN 12 Creatinine 0.7 Est GFR ( Amer) > 60 Est GFR (Non-Af Amer) > 60 POC Glucose (mg/dL) 330 H Random Glucose 429 H* D Calcium 9.4 Total Bilirubin 0.8 AST 36 ALT 44 Alkaline Phosphatase 121 Total Creatine Kinase CK-MB (Mass) Troponin I < 0.0120 Total Protein 7.9 Albumin 4.2 Globulin 3.8 Albumin/Globulin Ratio 1.1 Urine Color Urine Clarity Urine pH Ur Specific [place] Urine Protein Urine Glucose (UA) Urine Ketones Urine Blood Urine Nitrate Urine Bilirubin Urine Urobilinogen Ur Leukocyte Esterase Urine WBC (Auto) Urine RBC (Auto) Urine Bacteria Urine HCG, Qual Serum Ketones 07/06/17 07/06/17 07/06/17 13:42 16:24 17:00 WBC RBC Hgb Hct MCV MCH MCHC RDW Plt Count MPV Neut % (Auto) Lymph % (Auto) [place] % (Auto) Eos % (Auto) Baso % (Auto) Neut # (Auto) Lymph # (Auto) [place] # (Auto) Eos # (Auto) Baso # (Auto) Sodium Potassium Chloride Carbon Dioxide Anion Gap BUN Creatinine Est GFR ( Amer) Est GFR (Non-Af Amer) POC Glucose (mg/dL) 258 H Random Glucose Calcium Total Bilirubin AST ALT Alkaline Phosphatase Total Creatine Kinase CK-MB (Mass) Troponin I Total Protein Albumin Globulin Albumin/Globulin Ratio Urine Color Yellow Urine Clarity Clear Urine pH 7.0 Ur Specific [place] 1.018 Urine Protein 2+ H Urine Glucose (UA) 3+ H Urine Ketones Negative Urine Blood Negative Urine Nitrate Negative Urine Bilirubin Negative Urine Urobilinogen Normal Ur Leukocyte Esterase Neg Urine WBC (Auto) 2 Urine RBC (Auto) < 1 Urine Bacteria Occ H Urine HCG, Qual Negative Serum Ketones Negative 07/06/17 07/06/17 07/06/17 18:58 22:27 22:27 WBC RBC Hgb Hct MCV MCH MCHC RDW Plt Count MPV Neut % (Auto) Lymph % (Auto) [place] % (Auto) Eos % (Auto) Baso % (Auto) Neut # (Auto) Lymph # (Auto) [place] # (Auto) Eos # (Auto) Baso # (Auto) Sodium Potassium Chloride Carbon Dioxide Anion Gap BUN Creatinine Est GFR ( Amer) Est GFR (Non-Af Amer) POC Glucose (mg/dL) 320 H 255 H 255 H Random Glucose Calcium Total Bilirubin AST ALT Alkaline Phosphatase Total Creatine Kinase CK-MB (Mass) Troponin I Total Protein Albumin Globulin Albumin/Globulin Ratio Urine Color Urine Clarity Urine pH Ur Specific [place] Urine Protein Urine Glucose (UA) Urine Ketones Urine Blood Urine Nitrate Urine Bilirubin Urine Urobilinogen Ur Leukocyte Esterase Urine WBC (Auto) Urine RBC (Auto) Urine Bacteria Urine HCG, Qual Serum Ketones 07/07/17 07/07/17 07/07/17 02:08 06:39 07:04 WBC 4.3 L RBC 4.13 Hgb 11.5 Hct 33.9 L MCV 82.0 MCH 27.9 MCHC 34.0 RDW 13.4 Plt Count 220 MPV 8.5 Neut % (Auto) Lymph % (Auto) [place] % (Auto) Eos % (Auto) Baso % (Auto) Neut # (Auto) Lymph # (Auto) [place] # (Auto) Eos # (Auto) Baso # (Auto) Sodium Potassium Chloride Carbon Dioxide Anion Gap BUN Creatinine Est GFR ( Amer) Est GFR (Non-Af Amer) POC Glucose (mg/dL) 248 H 215 H Random Glucose Calcium Total Bilirubin AST ALT Alkaline Phosphatase Total Creatine Kinase CK-MB (Mass) Troponin I Total Protein Albumin Globulin Albumin/Globulin Ratio Urine Color Urine Clarity Urine pH Ur Specific [place] Urine Protein Urine Glucose (UA) Urine Ketones Urine Blood Urine Nitrate Urine Bilirubin Urine Urobilinogen Ur Leukocyte Esterase Urine WBC (Auto) Urine RBC (Auto) Urine Bacteria Urine HCG, Qual Serum Ketones 07/07/17 07/07/17 07:04 11:23 WBC RBC Hgb Hct MCV MCH MCHC RDW Plt Count MPV Neut % (Auto) Lymph % (Auto) [place] % (Auto) Eos % (Auto) Baso % (Auto) Neut # (Auto) Lymph # (Auto) [place] # (Auto) Eos # (Auto) Baso # (Auto) Sodium 144 Potassium 3.9 Chloride 106 Carbon Dioxide 27 Anion Gap 15 BUN 10 Creatinine 0.7 Est GFR ( Amer) > 60 Est GFR (Non-Af Amer) > 60 POC Glucose (mg/dL) 192 H Random Glucose 211 H Calcium 8.8 Total Bilirubin AST ALT Alkaline Phosphatase Total Creatine Kinase 75 CK-MB (Mass) 0.35 Troponin I < 0.0120 Total Protein Albumin Globulin Albumin/Globulin Ratio Urine Color Urine Clarity Urine pH Ur Specific [place] Urine Protein Urine Glucose (UA) Urine Ketones Urine Blood Urine Nitrate Urine Bilirubin Urine Urobilinogen Ur Leukocyte Esterase Urine WBC (Auto) Urine RBC (Auto) Urine Bacteria Urine HCG, Qual Serum Ketones Assessment & Plan (1) Chest pain Assessment and Plan: rule out AR ECho is normal Status: Acute (2) HTN (hypertension) Status: Acute (3) Diabetes mellitus Assessment and Plan: insulin oral diabetic medication Status: Acute
--- NOTE | 2017-07-07 16:59 | CARD ---
APPROVED REPORT EXAM: Two-dimensional and M-mode echocardiogram with Doppler and color Doppler. Other Information Quality : GoodRhythm : INDICATION CVA/TIA Chest Pain RISK FACTORS Hypertension Diabetes 2D DIMENSIONS IVSd0.9 (0.7-1.1cm)LVDd4.2 (3.9-5.9cm) PWd1.1 (0.7-1.1cm)LVDs2.5 (2.5-4.0cm) FS (%) 41.7 %LVEF (%)65.0 (>50%) M-Mode DIMENSIONS Left Atrium (MM)3.54 (2.5-4.0cm)Aortic Root3.05 (2.2-3.7cm) Aortic Cusp Exc.2.26 (1.5-2.0cm) Mitral Valve MV E Rzwcqdif75.4cm/sMV A Ulozothh00.1cm/sE/A ratio0.7 TDI E/Lateral E'0.0E/Medial E'0.0 LEFT VENTRICLE The left ventricle is normal size. There is normal left ventricular wall thickness. The left ventricular function is normal. The left ventricular ejection fraction is within the normal range. There is normal LV segmental wall motion. Transmitral Doppler flow pattern is normal for age. RIGHT VENTRICLE The right ventricle is normal size. The right ventricular systolic function is normal. ATRIA The left atrium size is normal. The right atrium size is normal. AORTIC VALVE The aortic valve is normal in structure. No aortic regurgitation is present. MITRAL VALVE The mitral valve is normal in structure. There is no mitral valve regurgitation noted. TRICUSPID VALVE The tricuspid valve is normal in structure. There is no tricuspid valve regurgitation noted. PULMONIC VALVE The pulmonary valve is normal in structure. There is mild pulmonic valvular regurgitation. GREAT VESSELS The aortic root is normal in size. The IVC is normal in size and collapses >50% with inspiration. PERICARDIAL EFFUSION There is no pericardial effusion. <Conclusion> Normal bi-ventricular function. No significant valvularabnormality noted. No pericardial effusion.
[2017-07-07 18:17] LABS: CK-MB 0.43 ng/mL (0.0-3.38)
[2017-07-07] MEDS: Sodium Chloride 0.9% 1,000 ML IV SCH (21:28)
[2017-07-07] MEDS ORDERED: Magnesium Hydroxide Susp 30 ml UD PO PRN (22:39)
--- NOTE | 2017-07-08 01:11 | CP.PCM.PN ---
Subjective - Date & Time of Evaluation Date of Evaluation: 07/07/17 Time of Evaluation: 18:00 - Subjective Subjective: Pt seen and examined at bedside, chest pain is better, ECho, EKG normal, most likely non coronary chest pain, pt is on monitoring Objective - Vital Signs/Intake and Output Vital Signs (last 24 hours): Temp Pulse Resp BP Pulse Ox 97.8 F 73 18 119/71 95 07/07/17 16:00 07/07/17 23:55 07/07/17 16:00 07/07/17 16:00 07/07/17 16:00 Intake and Output: 07/07/17 07/08/17 18:59 06:59 Intake Total 800 1200 Balance 800 1200 - Medications Medications: Current Medications Amlodipine Besylate (Norvasc) 5 mg PO DAILY [facility] Last Admin: 07/07/17 10:32 Dose: 5 mg Aspirin (Ecotrin) 81 mg PO DAILY [facility] Last Admin: 07/07/17 10:33 Dose: 81 mg Enoxaparin Sodium (Lovenox) 40 mg SC DAILY [facility] Last Admin: 07/07/17 10:33 Dose: 40 mg Sodium Chloride (Sodium Chloride 0.9%) 1,000 mls @ 100 mls/hr IV .Q10H [facility] Last Admin: 07/07/17 21:28 Dose: 100 mls/hr Insulin Detemir (Levemir) 30 unit SC Q12 [facility] Last Admin: 07/07/17 21:27 Dose: 30 unit Insulin Human Regular (Novolin R) 0 unit SC ACHS [facility] PRN Reason: Protocol Last Admin: 07/07/17 21:11 Dose: Not Given Magnesium Hydroxide (Milk Of Magnesia) 30 ml PO DAILY PRN PRN Reason: Constipation Last Admin: 07/07/17 23:06 Dose: 30 ml Metformin HCl (Glucophage) 1,000 mg PO BID [facility] Last Admin: 07/07/17 18:16 Dose: 1,000 mg Rosuvastatin Calcium (Crestor) 10 mg PO HS [facility] Last Admin: 07/07/17 21:27 Dose: 10 mg - Labs Labs: 07/07/17 07:04 07/07/17 07:04 - Constitutional Appears: No Acute Distress - Head Exam Head Exam: ATRAUMATIC, NORMAL INSPECTION, NORMOCEPHALIC - Eye Exam Eye Exam: EOMI, Normal appearance, PERRL Pupil Exam: NORMAL ACCOMODATION, PERRL - Respiratory Exam Respiratory Exam: Clear to Ausculation Bilateral, NORMAL BREATHING PATTERN - Cardiovascular Exam Cardiovascular Exam: REGULAR RHYTHM, +S1, +S2. absent: Murmur - GI/Abdominal Exam GI & Abdominal Exam: Soft, Normal Bowel Sounds. absent: Tenderness - Neurological Exam Neurological Exam: Alert, Awake, CN II-XII Intact, Normal Gait, Oriented x3 - Psychiatric Exam Psychiatric exam: Normal Affect, Normal Mood Assessment and Plan (1) Chest pain Status: Acute (2) HTN (hypertension) Status: Acute (3) Diabetes mellitus Status: Acute
[2017-07-08 01:17] VITALS: BP 138/75; RESP 20; TEMP 97.6
[2017-07-08] MEDS: Sodium Chloride 0.9% 1,000 ML IV SCH ×2 (03:30→04:10)
[2017-07-08] MEDS ORDERED: Insulin Detemir 100 units/ml Vial (Levemir) SC SCH (06:33)
--- NOTE | 2017-07-08 08:54 | CP.PCM.PN ---
Subjective - Date & Time of Evaluation Date of Evaluation: 07/08/17 Time of Evaluation: 07:00 - Subjective Subjective: Pt seen and evaluated today alert, orientedx3, no sob or chest pains, NAD. Objective - Vital Signs/Intake and Output Vital Signs (last 24 hours): Temp Pulse Resp BP Pulse Ox 97.6 F 81 20 138/75 95 07/08/17 01:00 07/08/17 04:41 07/08/17 01:00 07/08/17 01:00 07/08/17 01:00 Intake and Output: 07/08/17 07/08/17 06:59 18:59 Intake Total 1200 Balance 1200 - Medications Medications: Current Medications Aspirin (Ecotrin) 81 mg PO DAILY [facility] Last Admin: 07/07/17 10:33 Dose: 81 mg Enoxaparin Sodium (Lovenox) 40 mg SC DAILY [facility] Last Admin: 07/07/17 10:33 Dose: 40 mg Insulin Detemir (Levemir) 34 unit SC Q12 [facility] Insulin Human Regular (Novolin R) 0 unit SC ACHS [facility] PRN Reason: Protocol Last Admin: 07/07/17 21:11 Dose: Not Given Losartan Potassium (Cozaar) 50 mg PO DAILY [facility] Magnesium Hydroxide (Milk Of Magnesia) 30 ml PO DAILY PRN PRN Reason: Constipation Last Admin: 07/07/17 23:06 Dose: 30 ml Metformin HCl (Glucophage) 1,000 mg PO BID [facility] Last Admin: 07/07/17 18:16 Dose: 1,000 mg Rosuvastatin Calcium (Crestor) 10 mg PO HS [facility] Last Admin: 07/07/17 21:27 Dose: 10 mg Sitagliptin Phosphate (Januvia) 100 mg PO DAILY [facility] - Labs Labs: 07/07/17 07:04 07/07/17 07:04 Assessment and Plan (1) Chest pain Status: Acute (2) HTN (hypertension) Status: Acute (3) Diabetes mellitus Status: Acute
[2017-07-08] MEDS: (Novolin R) Insulin Human Regular 100 units/ml vial SC SCH ×2 (09:00→13:09)
[2017-07-08] MEDS: Enoxaparin 40 mg Syringe SC SCH (09:49)
[2017-07-08 12:06] VITALS: PULSE 73
--- NOTE | 2017-07-08 17:55 | CP.PCM.PN ---
Subjective - Date & Time of Evaluation Date of Evaluation: 07/08/17 Time of Evaluation: 11:00 - Subjective Subjective: alert, orientedx3, no sob or chest pains, NAD. Objective - Vital Signs/Intake and Output Vital Signs (last 24 hours): Temp Pulse Resp BP Pulse Ox 97.6 F 73 20 138/75 95 07/08/17 01:00 07/08/17 07:52 07/08/17 01:00 07/08/17 01:00 07/08/17 01:00 Intake and Output: 07/08/17 07/08/17 06:59 18:59 Intake Total 1200 Balance 1200 - Labs Labs: 07/07/17 07:04 07/07/17 07:04 Assessment and Plan - Assessment and Plan (Free Text) Assessment: Patient admitted with hyperglycemia, chest pain, seen and examined. Alert and orientedx3, denies any sob or pain, blood sugar is more controlled. Discussed with DR Starr, plan to discharge home today. Advised to follow up with PMD in 1 week. Advised to keep close watch on her sugar levels.
--- NOTE | 2017-07-09 02:43 | CP.PCM.DIS ---
Provider - Provider Date of Admission: 07/06/17 16:51 Attending physician: David Starr MD Time Spent in preparation of Discharge (in minutes): 45 Diagnosis - Discharge Diagnosis (1) Chest pain Status: Acute (2) HTN (hypertension) Status: Acute (3) Diabetes mellitus Status: Acute Hospital Course - Lab Results Lab Results: Most Recent Lab Values WBC 4.3 K/uL (4.8-10.8) L 07/07/17 07:04 RBC 4.13 Mil/uL (3.80-5.20) 07/07/17 07:04 Hgb 11.5 g/dL (11.0-16.0) 07/07/17 07:04 Hct 33.9 % (34.0-47.0) L 07/07/17 07:04 MCV 82.0 fL (81.0-99.0) 07/07/17 07:04 MCH 27.9 pg (27.0-31.0) 07/07/17 07:04 MCHC 34.0 g/dL (33.0-37.0) 07/07/17 07:04 RDW 13.4 % (11.5-14.5) 07/07/17 07:04 Plt Count 220 K/uL (130-400) 07/07/17 07:04 MPV 8.5 fL (7.2-11.7) 07/07/17 07:04 Neut % (Auto) 66.6 % (50.0-75.0) 07/06/17 13:42 Lymph % (Auto) 23.8 % (20.0-40.0) 07/06/17 13:42 [place] % (Auto) 7.9 % (0.0-10.0) 07/06/17 13:42 Eos % (Auto) 1.1 % (0.0-4.0) 07/06/17 13:42 Baso % (Auto) 0.6 % (0.0-2.0) 07/06/17 13:42 Neut # (Auto) 3.2 K/uL (1.8-7.0) 07/06/17 13:42 Lymph # (Auto) 1.1 K/uL (1.0-4.3) 07/06/17 13:42 [place] # (Auto) 0.4 K/uL (0.0-0.8) 07/06/17 13:42 Eos # (Auto) 0.1 K/uL (0.0-0.7) 07/06/17 13:42 Baso # (Auto) 0.0 K/uL (0.0-0.2) 07/06/17 13:42 Sodium 144 mmol/L (132-148) 07/07/17 07:04 Potassium 3.9 mmol/L (3.6-5.2) 07/07/17 07:04 Chloride 106 mmol/L (98-107) 07/07/17 07:04 Carbon Dioxide 27 mmol/L (22-30) 07/07/17 07:04 Anion Gap 15 (10-20) 07/07/17 07:04 BUN 10 mg/dL (7-17) 07/07/17 07:04 Creatinine 0.7 mg/dL (0.7-1.2) 07/07/17 07:04 Est GFR ( Amer) > 60 07/07/17 07:04 Est GFR (Non-Af Amer) > 60 07/07/17 07:04 POC Glucose (mg/dL) 226 mg/dL (65-110) H 07/08/17 12:21 Random Glucose 211 mg/dL (65-105) H 07/07/17 07:04 Calcium 8.8 mg/dl (8.6-10.4) 07/07/17 07:04 Total Bilirubin 0.8 mg/dL (0.2-1.3) 07/06/17 13:42 AST 36 U/L (14-36) 07/06/17 13:42 ALT 44 U/L (9-52) 07/06/17 13:42 Alkaline Phosphatase 121 U/L (38-126) 07/06/17 13:42 Total Creatine Kinase 67 U/L (30-135) 07/07/17 17:49 CK-MB (Mass) 0.43 ng/mL (0.0-3.38) 07/07/17 17:49 Troponin I < 0.0120 ng/mL (0.00-0.120) 07/07/17 17:49 Total Protein 7.9 g/dL (6.3-8.3) 07/06/17 13:42 Albumin 4.2 g/dL (3.5-5.0) 07/06/17 13:42 Globulin 3.8 gm/dL (2.2-3.9) 07/06/17 13:42 Albumin/Globulin Ratio 1.1 (1.0-2.1) 07/06/17 13:42 Urine Color Yellow (YELLOW) 07/06/17 16:24 Urine Clarity Clear (Clear) 07/06/17 16:24 Urine pH 7.0 (5.0-8.0) 07/06/17 16:24 Ur Specific [place] 1.018 (1.003-1.030) 07/06/17 16:24 Urine Protein 2+ mg/dL (NEGATIVE) H 07/06/17 16:24 Urine Glucose (UA) 3+ mg/dL (Normal) H 07/06/17 16:24 Urine Ketones Negative mg/dL (NEGATIVE) 07/06/17 16:24 Urine Blood Negative (NEGATIVE) 07/06/17 16:24 Urine Nitrate Negative (NEGATIVE) 07/06/17 16:24 Urine Bilirubin Negative (NEGATIVE) 07/06/17 16:24 Urine Urobilinogen Normal mg/dL (0.2-1.0) 07/06/17 16:24 Ur Leukocyte Esterase Neg [place]/uL (Negative) 07/06/17 16:24 Urine WBC (Auto) 2 /hpf (0-5) 07/06/17 16:24 Urine RBC (Auto) < 1 /hpf (0-3) 07/06/17 16:24 Urine Bacteria Occ (<OCC) H 07/06/17 16:24 Urine HCG, Qual Negative (NEGATIVE) 07/06/17 16:24 Serum Ketones Negative (NEGATIVE) 07/06/17 13:42 - Hospital Course Hospital Course: Pt seen and examined, cardiac enzymes x 3 neg, pt had bowel movement after milk of magnesia was given, non coronory chest pain, pt is for discharge Discharge Exam - Head Exam Head Exam: ATRAUMATIC, NORMAL INSPECTION, NORMOCEPHALIC - Eye Exam Eye Exam: EOMI, Normal appearance, PERRL Pupil Exam: NORMAL ACCOMODATION, PERRL - ENT Exam ENT Exam: Mucous Membranes Moist - Respiratory Exam Respiratory Exam: Decreased Breath Sounds, Clear to PA & Lateral - Cardiovascular Exam Cardiovascular Exam: REGULAR RHYTHM, +S1, +S2 - GI/Abdominal Exam GI & Abdominal Exam: Normal Bowel Sounds Discharge Plan - Discharge Medications Prescriptions: SITagliptin [Januvia] 100 mg PO DAILY #30 tab - Follow Up Plan Condition: FAIR Disposition: HOME/ ROUTINE Instructions: Hyperglycemia, Adult (DC) Additional Instructions: Follow up with Dr Saeed in one week. Increase your Levemir dose to 34 units.
== END 2017-07-08 14:09 | disposition home or self-care (01) ==
LOC: C.ER 13:20 → C.6T 16:51 → C.9E 16:51
PROVIDERS: ADMIT Internal Medicine; ATTEND Internal Medicine
DX: R07.89 Other chest pain (principal); I10 Essential (primary) hypertension; E11.65 Type 2 diabetes mellitus with hyperglycemia; Z86.73 Personal history of transient ischemic attack (TIA), and cerebral infarction without residual deficits; E78.00 Pure hypercholesterolemia, unspecified; Z98.1 Arthrodesis status; M19.90 Unspecified osteoarthritis, unspecified site; F32.9 Major depressive disorder, single episode, unspecified; D64.9 Anemia, unspecified; Z79.84 Long term (current) use of oral hypoglycemic drugs
CPT/HCPCS: 36415; 71046; 80048; 80053; 81001; 82009; 82948; 84484; 84703; 85025; 85027; 93306; 96361; 96372; 96374; 96375; 99285; G0378; J1650; J2270; J7040

== ENCOUNTER 2017-08-21 15:45 | Observation (INO) | payer OTHER, BC ==
[2017-08-21 15:46] VITALS: BMI 30.9
[2017-08-21] MEDS ORDERED: Sodium Chloride 0.9% 1,000 ML IV STA (16:26)
[2017-08-21 16:48] LABS: BASO % 0.6 % (0.0-2.0); EOS # 0.1 K/uL (0.0-0.7); EOS % 1.3 % (0.0-4.0); LYMPH # 1.2 K/uL (1.0-4.3); MEAN CELL VOLUME 81.9 fL (81.0-99.0); MEAN CORPUSCULAR HEMOGLOBIN 27.4 pg (27.0-31.0); MEAN CORPUSCULAR HGB CONC 33.4 g/dL (33.0-37.0); MEAN PLATELET VOLUME 8.7 fL (7.2-11.7); MONO # 0.3 K/uL (0.0-0.8); MONO % 6.8 % (0.0-10.0); NEUT # 3.3 K/uL (1.8-7.0); NEUT % 66.3 % (50.0-75.0); NRBC % 0.2 % (0.0-2.0); RBC 4.38 Mil/uL (3.80-5.20); RED CELL DISTRIBUTION WIDTH 13.4 % (11.5-14.5); WHITE BLOOD COUNT 4.9 K/uL (4.8-10.8)
[2017-08-21 16:53] LABS: VENOUS BLOOD GAS BASE EXCESS -6.5 mmol/L (0.0-2.0); VENOUS BLOOD GAS PCO2 70 mmHg (40-60); VENOUS BLOOD GAS PO2 89 mm/Hg (30-55); VENOUS BLOOD PH 7.14 (7.32-7.43)
[2017-08-21 17:02] LABS: ALB/GLOB RATIO 1.2 (1.0-2.1); ALT/SGPT 44 U/L (9-52); AST/SGOT 25 U/L (14-36); BLOOD UREA NITROGEN 10 mg/dL (7-17); CALCIUM 9.1 mg/dl (8.6-10.4); GFR AFRICAN-AMERICAN > 60; GFR NON-AFRICAN AMERICAN > 60; LIPASE 295 U/L (23-300)
[2017-08-21] MEDS ORDERED: Sodium Chloride 0.9% 1,000 ML ONE (17:02)
--- NOTE | 2017-08-21 17:09 | C.PDOC ---
History Of Present Illness 52 y/o F c PMHx DM, HTN, HLD p/w chest pain and hyperglycemia x 1 day. Chest pain is L sided under breast, radiates to R upper back and shoulder. Also reports poorly controlled diabetes. Denies fever, chills, dyspnea, nausea, vomiting, diarrhea, dysuria, rash. Time Seen by Provider: 08/21/17 15:57 Chief Complaint (Nursing): Chest Pain Past Medical History Vital Signs: Last Vital Signs Temp Pulse 79 08/21/17 17:35 Resp 18 08/21/17 17:35 BP 121/48 L 08/21/17 17:35 Pulse Ox 98 08/21/17 18:20 - Medical History PMH: Anemia, Arthritis, Back Problems (SPINAL FUSION), Depression, Diabetes, HTN , Hypercholesterolemia, Hyperlipidemia, TIA Denies: Hepatitis, HIV, Chronic Kidney Disease, Seizures, Sexually Transmitted Disease - [facility] Procedures FLUOROSCOPY OF LEFT HEART USING LOW OSMOLAR CONTRAST (05/08/15) FLUOROSCOPY OF MULT COR ART USING L OSM CONTRAST (05/08/15) MEASURE OF CARDIAC SAMPL & PRESSURE, L HEART, PERC APPROACH (05/08/15) SPINAL TAP (09/04/12) Family History: States: Unknown Family Hx - Social History Hx Tobacco Use: No Hx Alcohol Use: No Hx Substance Use: No - Immunization History Hx Tetanus Toxoid Vaccination: No Hx Influenza Vaccination: Yes Hx Pneumococcal Vaccination: Yes Review Of Systems Except As Marked, All Systems Reviewed And Found Negative. Constitutional: Negative for: Fever Respiratory: Negative for: Shortness of Breath Physical Exam - Physical Exam Additional Physical Exam Comments: Gen: NAD Head: NC Eyes: No icterus ENT: MMM Neck: Supple CV: Regular rate Chest: No tenderness Lungs: CTA b/l Abd: Soft, NT Back: No CVA tenderness Skin: No rash Exremities: No edema Neuro: Alert ED Course And Treatment - Laboratory Results Result Diagrams: 08/21/17 16:39 08/21/17 16:39 O2 Sat by Pulse Oximetry: 98 - Radiology CXR: Interpreted by Me, Viewed By Me CXR Interpretation: Yes: No Acute Disease Medical Decision Making Medical Decision Making: EKG NSR 97 bpm, no ST elevations or T wave inversions CXR no acute disease Aspirin and nitro given en route. BHB negative. Dr. Saeed accepts patient to his service for hyperglycemia and chest pain, r/o ACS. resident associate paged. Disposition Discussed With Dr.: Chris Saeed Jr. Doctor Will See Patient In The: Hospital - Disposition Disposition: HOSPITALIZED Disposition Time: 17:14 Condition: FAIR Forms: [facility] SWYF (Sinhala) - POA Core Measure Indicators: Chest Pain - Clinical Impression Clinical Impression: Chest pain, Hyperglycemia
[2017-08-21 17:12] LABS: SQUAMOUS EPITHIAL 1 /hpf (0-5); URINE BACTERIA FEW (<OCC); URINE BILIRUBIN NEGATIVE (NEGATIVE); URINE BLOOD NEGATIVE (NEGATIVE); URINE COLOR Yellow (YELLOW); URINE GLUCOSE (UA) 3+ mg/dL (Normal); URINE LEUKOCYTE ESTERASE NEG Leu/uL (Negative); URINE PROTEIN NEGATIVE (NEGATIVE); URINE UROBILINOGEN NORMAL mg/dL (0.2-1.0)
[2017-08-21 17:12] LABS: CK-MB 0.68 ng/mL (0.0-3.38)
[2017-08-21 17:13] LABS: URINE CLARITY Hazy (Clear)
[2017-08-21] MEDS ORDERED: (Novolin R) Insulin Human Regular 100 units/ml vial SC ONE (17:49)
--- NOTE | 2017-08-21 17:51 | RAD ---
HISTORY: Chest pain. COMPARISON: 07/06/2017 FINDINGS: LUNGS: No active pulmonary disease. PLEURA: No significant pleural effusion identified, no pneumothorax apparent. CARDIOVASCULAR: No radiographic findings to suggest acute or significant cardiovascular disease. OSSEOUS STRUCTURES: No significant abnormalities. VISUALIZED UPPER ABDOMEN: Normal. OTHER FINDINGS: None. IMPRESSION: No active disease. No significant interval change compared to the prior examination(s).
[2017-08-21] MEDS ORDERED: (Novolin R) Insulin Human Regular 100 units/ml vial ONE (18:17)
[2017-08-21] MEDS ORDERED: Insulin Detemir 100 units/ml Vial (Levemir) SC ONE (20:30)
[2017-08-21] MEDS ORDERED: Sodium Chloride 0.9% 500 ML IV ONE (20:33)
--- NOTE | 2017-08-21 20:34 | CP.PCM.HP ---
History of Present Illness - History of Present Illness History of Present Illness: cc: "My sugar was high" HPI: Patient is a 51 year old female with past medical history DM, HTN, HLD, arthritis who presents to the ED with complaint of elevated blood sugar. Patient states she checked her blood sugar yesterday and it was elevated to about 598. She did not take any insulin today. She states when her blood sugar is elevated she has dizziness and confusion. She states she had an appointment with Dr. Saeed today but because of her symptoms her friend brought her to the ER. Patient complains of headache, dry mouth, increased thirst and more frequent urination. Patient denies polyphagia. Patient also admits constipation and back pain. Her last bowel movement was today but she has constipation daily. She has never had a colonoscopy. She states she tried to eat healthy but because of her increased stress at work she does not always eat properly. Patient states she knows she is not a compliant patient but she was going to see Dr. Saeed to receive medication refills. Patient states she did not take any medications today. PMD: Dr. Saeed PMHx: DM, HTN, HLD, arthritis, cataracts Medications: crestor 20mg, lisinopril 20mg, metformin 1000mg BID, levemir flex pen not sure about how many units per day, glimepiride 4mg BID Allergies: NKDA Past Surgical History: lumbar spinal fusion, tubal ligation, hysterectomy, wrist surgery Family History: Mother - DM and HTN due to renal failure; Father with HTN, DM - due to CHF; brother passed due to stomach cancer Social History: denies smoking, alcohol, or illicit drug use. 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 Present on Admission - Present on Admission Any Indicators Present on Admission: No Review of Systems - Constitutional Constitutional: Headache. absent: Chills, Fever - EENT Ears: Dizziness - Cardiovascular Cardiovascular: Chest Pain, Leg Edema. absent: Dyspnea, Palpitations - Gastrointestinal Gastrointestinal: Constipation. absent: Diarrhea, Nausea, Vomiting - Genitourinary Genitourinary: Urinary Frequency. absent: Dysuria - Musculoskeletal Musculoskeletal: Back Pain - Neurological Neurological: Headaches. absent: Numbness, Tingling Past Patient History - Infectious Disease Hx of Infectious Diseases: None - Tetanus Immunizations Tetanus Immunization: Unknown - Past Medical History & Family History Past Medical History?: Yes - Past Social History Smoking Status: Never Smoked - CARDIAC Hx Hypercholesterolemia: Yes Hx Hypertension: Yes - PULMONARY Hx Respiratory Disorders: No Hx Tuberculosis: No - NEUROLOGICAL Hx Seizures: No Hx Transient Ischemic Attacks (TIA): Yes - HEENT Hx HEENT Problems: No - RENAL Hx Chronic Kidney Disease: No - ENDOCRINE/METABOLIC Hx Endocrine Disorders: Yes Hx Diabetes Mellitus Type 1: Yes - HEMATOLOGICAL/ONCOLOGICAL Hx Anemia: Yes Hx Human Immunodeficiency Virus (HIV): No - INTEGUMENTARY Hx Dermatological Problems: No - MUSCULOSKELETAL/RHEUMATOLOGICAL Hx Arthritis: Yes - GASTROINTESTINAL Hx Gastrointestinal Disorders: No - GENITOURINARY/GYNECOLOGICAL Hx Sexually Transmitted Disorders: No - PSYCHIATRIC Hx Depression: Yes Hx Substance Use: No - SURGICAL HISTORY Hx Surgeries: Yes Hx Section: Yes Hx Hysterectomy: Yes Hx Orthopedic Surgery: Yes (SPINAL FUSION) - ANESTHESIA Hx Anesthesia: Yes Hx Anesthesia Reactions: No Hx Malignant Hyperthermia: No Meds Allergies/Adverse Reactions: Allergies Allergy/AdvReac Type Severity Reaction Status Date / Time No Known Allergies Allergy Verified 08/21/17 15:57 Physical Exam - Constitutional Appears: Non-toxic, No Acute Distress - Head Exam Head Exam: ATRAUMATIC, NORMAL INSPECTION - Eye Exam Eye Exam: EOMI, Normal appearance, PERRL Pupil Exam: NORMAL ACCOMODATION - ENT Exam ENT Exam: Mucous Membranes Dry - Respiratory Exam Respiratory Exam: Clear to Auscultation Bilateral, NORMAL BREATHING PATTERN - Cardiovascular Exam Cardiovascular Exam: REGULAR RHYTHM, +S1, +S2 - GI/Abdominal Exam GI & Abdominal Exam: Normal Bowel Sounds, Soft. absent: Tenderness - Extremities Exam Extremities exam: Positive for: normal capillary refill, normal inspection, pedal pulses present. Negative for: pedal edema, tenderness - Back Exam Back exam: vertebral tenderness (left side T7). absent: CVA tenderness (L), CVA tenderness (R) - Neurological Exam Neurological exam: Alert, CN II-XII Intact, Oriented x3 - Expanded Neurological Exam Expanded Patient oriented to: person, place, time Sensory exam: Lower Extremity Light Touch: Normal, Upper Extremity Light Touch: Normal Neuro motor strength exam: Left Upper Extremity: 5, Right Upper Extremity: 5, Left Lower Extremity: 5, Right Lower Extremity: 5 Coma Scale Eye Opening: SPONTANEOUS Coma Scale Motor Response: OBEYS COMMANDS - Psychiatric Exam Psychiatric exam: Normal Affect, Normal Mood - Skin Skin Exam: Normal Color Results - Vital Signs Recent Vital Signs: Last Vital Signs Temp 98.2 F 08/21/17 19:37 Pulse 86 08/21/17 19:37 Resp 20 08/21/17 19:37 BP 146/82 08/21/17 19:37 Pulse Ox 96 08/21/17 19:37 - Labs Result Diagrams: 08/21/17 16:39 08/21/17 16:39 Labs: Laboratory Results - last 24 hr 08/21/17 08/21/17 08/21/17 15:49 16:39 16:39 WBC 4.9 RBC 4.38 Hgb 12.0 Hct 35.9 MCV 81.9 MCH 27.4 MCHC 33.4 RDW 13.4 Plt Count 249 MPV 8.7 Neut % (Auto) 66.3 Lymph % (Auto) 25.0 [place] % (Auto) 6.8 Eos % (Auto) 1.3 Baso % (Auto) 0.6 Neut # (Auto) 3.3 Lymph # (Auto) 1.2 [place] # (Auto) 0.3 Eos # (Auto) 0.1 Baso # (Auto) 0.0 pO2 VBG pH VBG pCO2 VBG HCO3 VBG Total CO2 VBG O2 Sat (Calc) VBG Base Excess VBG Potassium Glucose Lactate FiO2 Crit Value Called To Crit Value Called By Crit Value Read Back Blood Gas Notified Time Sodium 139 Potassium 4.3 Chloride 102 Carbon Dioxide 26 Anion Gap 15 BUN 10 Creatinine 0.8 Est GFR ( Amer) > 60 Est GFR (Non-Af Amer) > 60 POC Glucose (mg/dL) 375 H Random Glucose 428 H* D Calcium 9.1 Total Bilirubin 0.7 AST 25 ALT 44 Alkaline Phosphatase 129 H Total Creatine Kinase 53 CK-MB (Mass) 0.68 Troponin I < 0.0120 Total Protein 7.4 Albumin 4.0 Globulin 3.4 Albumin/Globulin Ratio 1.2 Lipase 295 Venous Blood Potassium Urine Color Urine Clarity Urine pH Ur Specific [place] Urine Protein Urine Glucose (UA) Urine Ketones Urine Blood Urine Nitrate Urine Bilirubin Urine Urobilinogen Ur Leukocyte Esterase Urine WBC (Auto) Ur Squamous Epith Cells Urine Bacteria B-Hydroxybutyrate 0.13 08/21/17 08/21/17 08/21/17 16:50 16:55 17:55 WBC RBC Hgb Hct MCV MCH MCHC RDW Plt Count MPV Neut % (Auto) Lymph % (Auto) [place] % (Auto) Eos % (Auto) Baso % (Auto) Neut # (Auto) Lymph # (Auto) [place] # (Auto) Eos # (Auto) Baso # (Auto) pO2 89 H VBG pH 7.14 L* VBG pCO2 70 H* VBG HCO3 19.8 VBG Total CO2 25.9 VBG O2 Sat (Calc) 97.5 H VBG Base Excess -6.5 L VBG Potassium > 20.0 H* Glucose 436 H* Lactate 2.5 H FiO2 21.0 Crit Value Called To Dr alonso Crit Value Called By [facility] Crit Value Read Back Y Blood Gas Notified Time 1653 Sodium 128.0 L Potassium Chloride 102.0 Carbon Dioxide Anion Gap BUN Creatinine Est GFR ( Amer) Est GFR (Non-Af Amer) POC Glucose (mg/dL) 396 H Random Glucose Calcium Total Bilirubin AST ALT Alkaline Phosphatase Total Creatine Kinase CK-MB (Mass) Troponin I Total Protein Albumin Globulin Albumin/Globulin Ratio Lipase Venous Blood Potassium > 20.0 H* Urine Color Yellow Urine Clarity Hazy Urine pH 7.0 Ur Specific [place] 1.018 Urine Protein Negative Urine Glucose (UA) 3+ H Urine Ketones Negative Urine Blood Negative Urine Nitrate Positive H Urine Bilirubin Negative Urine Urobilinogen Normal Ur Leukocyte Esterase Neg Urine WBC (Auto) 3 Ur Squamous Epith Cells 1 Urine Bacteria Few H B-Hydroxybutyrate 08/21/17 08/21/17 17:57 17:59 WBC RBC Hgb Hct MCV MCH MCHC RDW Plt Count MPV Neut % (Auto) Lymph % (Auto) [place] % (Auto) Eos % (Auto) Baso % (Auto) Neut # (Auto) Lymph # (Auto) [place] # (Auto) Eos # (Auto) Baso # (Auto) pO2 VBG pH VBG pCO2 VBG HCO3 VBG Total CO2 VBG O2 Sat (Calc) VBG Base Excess VBG Potassium Glucose Lactate FiO2 Crit Value Called To Crit Value Called By Crit Value Read Back Blood Gas Notified Time Sodium Potassium Chloride Carbon Dioxide Anion Gap BUN Creatinine Est GFR ( Amer) Est GFR (Non-Af Amer) POC Glucose (mg/dL) 433 H* 379 H Random Glucose Calcium Total Bilirubin AST ALT Alkaline Phosphatase Total Creatine Kinase CK-MB (Mass) Troponin I Total Protein Albumin Globulin Albumin/Globulin Ratio Lipase Venous Blood Potassium Urine Color Urine Clarity Urine pH Ur Specific [place] Urine Protein Urine Glucose (UA) Urine Ketones Urine Blood Urine Nitrate Urine Bilirubin Urine Urobilinogen Ur Leukocyte Esterase Urine WBC (Auto) Ur Squamous Epith Cells Urine Bacteria B-Hydroxybutyrate Assessment & Plan - Assessment and Plan (Free Text) Assessment: Hyperglycemia, uncontrolled diabetes last known A1c 10.5 in 10/2016 will check new A1c will place home meds metformin 1000mg BID, glimepiride 4mg BID on hold Levemir 20units BID accuchecks ACHS with sliding scale coverage Hypoglycemia protocol sugar decreased form 433 to 379 after 7 units IV insulin given in the ER serum ketones negative UA with 3+ glucose anion gap 13 VBG pH 7.14 patient is acidotic will continue NS @ 100cc/hr mod consistent carb diet diabetic education Chest pain on admission Patient states it has resolved Trop negative - f/u trop x2 EKG NSR @90bpm HTN contine home medications lisinopril 20mg daily ECHO (07/21): Normal bi-ventricular function; no significant valvular abnormality noted; no pericardial effusion; EF 65% HLD continue home medication crestor 20mg daily Lipid Panel (10/27/16): Triglycerides 231; LDL 159; HDL 159; HDL 34 f/u Lipid Panel Constipation Dulcolax once Colace 100mg TID Prophylactic measure Lovenox 40mg SC daily SCDs Case discussed with Dr. Darlin Franklin PGY-2
[2017-08-21] MEDS ORDERED: Dextrose 50% SYRINGE Inj (50 ml) IV PRN (20:59)
[2017-08-21] MEDS ORDERED: Glucagon Recombinant 1 mg Inj IM PRN (20:59)
[2017-08-21] MEDS ORDERED: Bisacodyl 5mg EC Tab PO ONE (21:02)
[2017-08-21] MEDS: (Novolin R) Insulin Human Regular 100 units/ml vial SC SCH (22:06)
[2017-08-22] MEDS: Sodium Chloride 0.9% 1,000 ML IV SCH ×2 (02:19→07:45)
[2017-08-22 08:24] LABS: BASO % 0.6 % (0.0-2.0); EOS # 0.1 K/uL (0.0-0.7); EOS % 1.9 % (0.0-4.0); HEMOGLOBIN 11.2 g/dL (11.0-16.0); LYMPH # 1.2 K/uL (1.0-4.3); LYMPH % 31.3 % (20.0-40.0); MEAN CELL VOLUME 82.5 fL (81.0-99.0); MEAN CORPUSCULAR HEMOGLOBIN 27.8 pg (27.0-31.0); MEAN CORPUSCULAR HGB CONC 33.7 g/dL (33.0-37.0); MEAN PLATELET VOLUME 8.6 fL (7.2-11.7); MONO # 0.3 K/uL (0.0-0.8); MONO % 7.1 % (0.0-10.0); NEUT # 2.2 K/uL (1.8-7.0); NEUT % 59.1 % (50.0-75.0); NRBC % 0.2 % (0.0-2.0); RBC 4.02 Mil/uL (3.80-5.20); RED CELL DISTRIBUTION WIDTH 13.1 % (11.5-14.5); WHITE BLOOD COUNT 3.7 K/uL (4.8-10.8)
[2017-08-22] MEDS: (Novolin R) Insulin Human Regular 100 units/ml vial SC SCH ×4 (08:25→21:18)
[2017-08-22 08:31] LABS: ALB/GLOB RATIO 1.1 (1.0-2.1); ALBUMIN 3.5 g/dL (3.5-5.0); ALT/SGPT 34 U/L (9-52); AST/SGOT 22 U/L (14-36); BLOOD UREA NITROGEN 10 mg/dL (7-17); CALCIUM 8.8 mg/dl (8.6-10.4); GFR AFRICAN-AMERICAN > 60; GFR NON-AFRICAN AMERICAN > 60; HDL CHOLESTEROL 32 mg/dL (30-70)
[2017-08-22 08:39] LABS: LDL CHOLESTEROL 142 mg/dL (0-129)
[2017-08-22] MEDS: Insulin Detemir 100 units/ml Vial (Levemir) SC SCH ×2 (10:21→17:28)
[2017-08-22] MEDS: Enoxaparin 40 mg Syringe SC SCH (10:22)
--- NOTE | 2017-08-22 11:30 | CARD ---
APPROVED REPORT EKG Measurement Heart [id number] 136P [id number] <Conclusion> Suspect arm lead reversal, please repeat 12-lead EKG. Following interpretation assumes no reversal Normal sinus rhythm Lateral infarct, age undetermined Inferior infarct, age undetermined Abnormal ECG
--- NOTE | 2017-08-22 11:31 | CARD ---
APPROVED REPORT EKG Measurement Heart [id number] MD [id number] <Conclusion> Normal sinus rhythm Normal ECG
--- NOTE | 2017-08-22 18:12 | CP.PCM.PN ---
Subjective - Date & Time of Evaluation Date of Evaluation: 08/22/17 Time of Evaluation: 09:45 - Subjective Subjective: PGY-[address] Saeed. No acute events noted overnight. Patient stated she felt much better today. Denied dizziness. She stated she will try to be more complaint with her DM medications when she leaves. She denied chest pain, blurry vision, dysuria, abdominal pain, fever, chills. Objective - Vital Signs/Intake and Output Vital Signs (last 24 hours): Temp Pulse Resp BP Pulse Ox 97.7 F 72 18 132/84 96 08/22/17 15:43 08/22/17 15:43 08/22/17 15:43 08/22/17 15:43 08/22/17 15:43 Intake and Output: 08/22/17 08/22/17 06:59 18:59 Intake Total 920 Balance 920 - Medications Medications: Current Medications Dextrose (Dextrose 50% Inj) 0 ml IV STAT PRN; Protocol PRN Reason: Hypoglycemia Protocol Dextrose (Glutose 15) 0 gm PO ONCE PRN; Protocol PRN Reason: Hypoglycemia Protocol Docusate Sodium (Colace) 100 mg PO TID [facility] Last Admin: 08/22/17 17:27 Dose: 100 mg Enoxaparin Sodium (Lovenox) 40 mg SC DAILY [facility] Last Admin: 08/22/17 10:22 Dose: 40 mg Glucagon (Glucagen Diagnostic Kit) 0 mg IM STAT PRN; Protocol PRN Reason: Hypoglycemia Protocol Dextrose (Dextrose 5% In Water 1000 Ml) 1,000 mls @ 0 mls/hr IV .Q0M PRN; Protocol; Per Protocol PRN Reason: Hypoglycemia Protocol Sodium Chloride (Sodium Chloride 0.9%) 1,000 mls @ 100 mls/hr IV .Q10H [facility] Last Admin: 08/22/17 07:45 Dose: Not Given Insulin Detemir (Levemir) 20 unit SC BID [facility] Last Admin: 08/22/17 17:28 Dose: 20 units Insulin Human Regular (Novolin R) 0 unit SC ACHS BILL PRN Reason: Protocol Last Admin: 08/22/17 17:28 Dose: 4 units Lisinopril (Zestril) 20 mg PO DAILY [facility] Last Admin: 08/22/17 10:22 Dose: 20 mg Lisinopril (Zestril) 20 mg PO ONCE ONE Stop: 08/22/17 20:33 Rosuvastatin Calcium (Crestor) 20 mg PO HS [facility] Last Admin: 08/21/17 21:10 Dose: 20 mg - Labs Labs: 08/22/17 07:52 08/22/17 07:52 - Additional Findings Additional findings: - Constitutional Appears: Non-toxic, No Acute Distress - Head Exam Head Exam: ATRAUMATIC, NORMAL INSPECTION - Eye Exam Eye Exam: EOMI, Normal appearance, PERRL Pupil Exam: NORMAL ACCOMODATION - ENT Exam ENT Exam: Mucous Membranes Dry - Respiratory Exam Respiratory Exam: Clear to Auscultation Bilateral, NORMAL BREATHING PATTERN - Cardiovascular Exam Cardiovascular Exam: REGULAR RHYTHM, +S1, +S2 - GI/Abdominal Exam GI & Abdominal Exam: Normal Bowel Sounds, Soft. absent: Tenderness - Extremities Exam Extremities exam: Positive for: normal capillary refill, normal inspection, pedal pulses present. Negative for: pedal edema, tenderness - Back Exam Back exam: absent: CVA tenderness (L), CVA tenderness (R) - Neurological Exam Neurological exam: Alert, CN II-XII Intact, Oriented x3 - Expanded Neurological Exam Expanded Patient oriented to: person, place, time Sensory exam: Lower Extremity Light Touch: Normal, Upper Extremity Light Touch: Normal Neuro motor strength exam: Left Upper Extremity: 5, Right Upper Extremity: 5, Left Lower Extremity: 5, Right Lower Extremity: 5 Coma Scale Eye Opening: SPONTANEOUS Coma Scale Motor Response: OBEYS COMMANDS - Psychiatric Exam Psychiatric exam: Normal Affect, Normal Mood - Skin Skin Exam: Normal Color Assessment and Plan - Assessment and Plan (Free Text) Assessment: Hyperglycemia, uncontrolled diabetes A1c 11.[address] home meds metformin 1000mg BID, glimepiride 4mg BID on hold Levemir 20units BID accuchecks ACHS with sliding scale coverage Hypoglycemia protocol serum ketones negative UA with 3+ glucose anion gap 13 VBG pH 7.14 patient was acidotic on admission will continue NS @ 100cc/hr mod consistent carb diet diabetic education UTI Urine culture growing gram negative rods UA: positive for Nitrates with few bacteria Cipro 400mg IVP BID started 08/22/17 Chest pain on admission Patient states it has resolved Trop negative x3 EKG NSR @90bpm HTN contine home medications lisinopril 20mg daily ECHO (07/21): Normal bi-ventricular function; no significant valvular abnormality noted; no pericardial effusion; EF 65% HLD continue home medication crestor 20mg daily Lipid Panel Tri 08/22/17: Tri 210, LDL 142, HDL 32, LDL 142 Constipation Colace 100mg TID Prophylactic measure Lovenox 40mg SC daily SCDs Case discussed with Dr. Darlin Guerrero PGY-2
[2017-08-22] MEDS: Ciprofloxacin 400mg/200ml D5W 400 MG/200 ML BAG IVPB SCH (21:09)
[2017-08-23] MEDS: Sodium Chloride 0.9% 1,000 ML IV SCH (02:00)
[2017-08-23] MEDS: Ciprofloxacin 400mg/200ml D5W 400 MG/200 ML BAG IVPB SCH ×2 (06:11→18:28)
[2017-08-23] MEDS ORDERED: Magnesium Citrate Oral SOL (300 ml) PO ONE (08:00)
[2017-08-23 08:21] LABS: BASO % 0.6 % (0.0-2.0); EOS # 0.1 K/uL (0.0-0.7); EOS % 2.2 % (0.0-4.0); HEMOGLOBIN 11.6 g/dL (11.0-16.0); MEAN CELL VOLUME 81.2 fL (81.0-99.0); MEAN CORPUSCULAR HEMOGLOBIN 28.3 pg (27.0-31.0); MEAN CORPUSCULAR HGB CONC 34.8 g/dL (33.0-37.0); MEAN PLATELET VOLUME 8.4 fL (7.2-11.7); MONO # 0.3 K/uL (0.0-0.8); MONO % 6.8 % (0.0-10.0); NEUT # 2.4 K/uL (1.8-7.0); NEUT % 63.4 % (50.0-75.0); RBC 4.11 Mil/uL (3.80-5.20); WHITE BLOOD COUNT 3.8 K/uL (4.8-10.8)
[2017-08-23] MEDS: (Novolin R) Insulin Human Regular 100 units/ml vial SC SCH ×4 (08:31→21:52)
[2017-08-23 08:36] LABS: ALB/GLOB RATIO 1.2 (1.0-2.1); ALBUMIN 3.8 g/dL (3.5-5.0); ALT/SGPT 39 U/L (9-52); AST/SGOT 23 U/L (14-36); BLOOD UREA NITROGEN 9 mg/dL (7-17); CALCIUM 9.2 mg/dl (8.6-10.4); GFR AFRICAN-AMERICAN > 60; GFR NON-AFRICAN AMERICAN > 60
[2017-08-23] MEDS: Insulin Detemir 100 units/ml Vial (Levemir) SC SCH ×2 (09:23→17:51)
[2017-08-23] MEDS: Enoxaparin 40 mg Syringe SC SCH (09:24)
--- NOTE | 2017-08-23 13:30 | CP.PCM.PN ---
Subjective - Date & Time of Evaluation Date of Evaluation: 08/23/17 Time of Evaluation: 11:30 - Subjective Subjective: PGY-[address] Saeed. No acute events noted overnight. Patient did not offer any complains. She denied urinary symptoms. She denied dizziness or blurry vision or feeling unwell. Objective - Vital Signs/Intake and Output Vital Signs (last 24 hours): Temp Pulse Resp BP Pulse Ox 98.0 F 78 20 131/90 98 08/23/17 08:35 08/23/17 12:00 08/23/17 08:35 08/23/17 08:35 08/22/17 23:40 Intake and Output: 08/23/17 08/23/17 06:59 18:59 Intake Total 945 Balance 945 - Medications Medications: Current Medications Dextrose (Dextrose 50% Inj) 0 ml IV STAT PRN; Protocol PRN Reason: Hypoglycemia Protocol Dextrose (Glutose 15) 0 gm PO ONCE PRN; Protocol PRN Reason: Hypoglycemia Protocol Enoxaparin Sodium (Lovenox) 40 mg SC DAILY [facility] Last Admin: 08/23/17 09:24 Dose: 40 mg Glucagon (Glucagen Diagnostic Kit) 0 mg IM STAT PRN; Protocol PRN Reason: Hypoglycemia Protocol Dextrose (Dextrose 5% In Water 1000 Ml) 1,000 mls @ 0 mls/hr IV .Q0M PRN; Protocol; Per Protocol PRN Reason: Hypoglycemia Protocol Sodium Chloride (Sodium Chloride 0.9%) 1,000 mls @ 100 mls/hr IV .Q10H [facility] Last Admin: 08/23/17 02:00 Dose: 100 mls/hr Ciprofloxacin (Cipro 400mg/200ml Dsw) 400 mg in 200 mls @ 133 mls/hr IVPB Q12H [facility] PRN Reason: Protocol Last Admin: 08/23/17 06:11 Dose: 133 mls/hr Insulin Detemir (Levemir) 22 unit SC BID [facility] Last Admin: 08/23/17 09:23 Dose: 22 units Insulin Human Regular (Novolin R) 0 unit SC ACHS [facility] PRN Reason: Protocol Last Admin: 08/23/17 12:55 Dose: 4 units Lisinopril (Zestril) 20 mg PO DAILY [facility] Last Admin: 08/23/17 09:24 Dose: 20 mg Rosuvastatin Calcium (Crestor) 20 mg PO HS [facility] Last Admin: 08/22/17 21:10 Dose: 20 mg - Labs Labs: 08/23/17 08:08 08/23/17 08:08 - Additional Findings Additional findings: - Constitutional Appears: Non-toxic, No Acute Distress - Head Exam Head Exam: ATRAUMATIC, NORMAL INSPECTION - Eye Exam Eye Exam: EOMI, Normal appearance, PERRL Pupil Exam: NORMAL ACCOMODATION - ENT Exam ENT Exam: Mucous Membranes Moist - Respiratory Exam Respiratory Exam: Clear to Auscultation Bilateral, NORMAL BREATHING PATTERN - Cardiovascular Exam Cardiovascular Exam: REGULAR RHYTHM, +S1, +S2 - GI/Abdominal Exam GI & Abdominal Exam: Normal Bowel Sounds, Soft. absent: Tenderness - Extremities Exam Extremities exam: Positive for: normal capillary refill, normal inspection, pedal pulses present. Negative for: pedal edema, tenderness - Back Exam Back exam: absent: CVA tenderness (L), CVA tenderness (R) - Neurological Exam Neurological exam: Alert, CN II-XII Intact, Oriented x3 - Expanded Neurological Exam Expanded Patient oriented to: person, place, time Sensory exam: Lower Extremity Light Touch: Normal, Upper Extremity Light Touch: Normal Neuro motor strength exam: Left Upper Extremity: 5, Right Upper Extremity: 5, Left Lower Extremity: 5, Right Lower Extremity: 5 Coma Scale Eye Opening: SPONTANEOUS Coma Scale Motor Response: OBEYS COMMANDS - Psychiatric Exam Psychiatric exam: Normal Affect, Normal Mood - Skin Skin Exam: Normal Color Assessment and Plan - Assessment and Plan (Free Text) Assessment: Hyperglycemia, uncontrolled diabetes A1c 11.4 will hold home meds metformin 1000mg BID, glimepiride 4mg BID Levemir 22units BID Rosuvastatin 20mg PO HS accuchecks ACHS with sliding scale coverage Hypoglycemia protocol serum ketones negative UA with 3+ glucose anion gap 13 VBG pH 7.14 patient was acidotic on admission will continue NS @ 100cc/hr mod consistent carb diet diabetic education UTI Urine culture growing gram negative rods UA: positive for Nitrates with few bacteria Cipro 400mg IVP BID started 08/22/17 F/U repeat UA Chest pain on admission Patient states it has resolved Trop negative x3 EKG NSR @90bpm HTN contine home medications lisinopril 20mg daily ECHO (07/21): Normal bi-ventricular function; no significant valvular abnormality noted; no pericardial effusion; EF 65% HLD continue home medication crestor 20mg daily Lipid Panel Tri 08/22/17: Tri 210, LDL 142, HDL 32, LDL 142 Constipation Colace 100mg TID Prophylactic measure Lovenox 40mg SC daily SCDs Case discussed with Dr. Darlin Guerrero PGY-2
[2017-08-23 20:36] LABS: SQUAMOUS EPITHIAL 1 /hpf (0-5); URINE BACTERIA RARE (<OCC); URINE BILIRUBIN NEGATIVE (NEGATIVE); URINE BLOOD NEGATIVE (NEGATIVE); URINE CLARITY Clear (Clear); URINE COLOR Straw (YELLOW); URINE GLUCOSE (UA) 3+ mg/dL (Normal); URINE LEUKOCYTE ESTERASE NEG Leu/uL (Negative); URINE PROTEIN 1+ mg/dL (NEGATIVE); URINE UROBILINOGEN NORMAL mg/dL (0.2-1.0)
[2017-08-24 01:20] VITALS: RESP 20
--- NOTE | 2017-08-24 05:40 | CARD ---
APPROVED REPORT EKG Measurement Heart [id number] MT [id number] <Conclusion> Normal sinus rhythm Cannot rule out Anterior infarct, age undetermined Abnormal ECG
[2017-08-24] MEDS: Ciprofloxacin 400mg/200ml D5W 400 MG/200 ML BAG IVPB SCH ×2 (06:09→18:01)
[2017-08-24 08:05] LABS: BASO % 0.6 % (0.0-2.0); EOS # 0.1 K/uL (0.0-0.7); EOS % 1.9 % (0.0-4.0); HEMOGLOBIN 11.4 g/dL (11.0-16.0); LYMPH # 1.1 K/uL (1.0-4.3); LYMPH % 26.4 % (20.0-40.0); MEAN CELL VOLUME 81.1 fL (81.0-99.0); MEAN CORPUSCULAR HEMOGLOBIN 27.8 pg (27.0-31.0); MEAN CORPUSCULAR HGB CONC 34.3 g/dL (33.0-37.0); MEAN PLATELET VOLUME 8.5 fL (7.2-11.7); MONO # 0.3 K/uL (0.0-0.8); MONO % 8.1 % (0.0-10.0); NEUT # 2.6 K/uL (1.8-7.0); NRBC % 0.1 % (0.0-2.0); RBC 4.09 Mil/uL (3.80-5.20); RED CELL DISTRIBUTION WIDTH 13.2 % (11.5-14.5); WHITE BLOOD COUNT 4.1 K/uL (4.8-10.8)
[2017-08-24] MEDS: (Novolin R) Insulin Human Regular 100 units/ml vial SC SCH ×4 (08:27→22:20)
[2017-08-24 08:57] LABS: ALB/GLOB RATIO 1.1 (1.0-2.1); ALBUMIN 3.7 g/dL (3.5-5.0); ALT/SGPT 36 U/L (9-52); AST/SGOT 27 U/L (14-36); BLOOD UREA NITROGEN 11 mg/dL (7-17); GFR AFRICAN-AMERICAN > 60; GFR NON-AFRICAN AMERICAN > 60
[2017-08-24] MEDS: Enoxaparin 40 mg Syringe SC SCH (09:33)
[2017-08-24] MEDS: Insulin Detemir 100 units/ml Vial (Levemir) SC SCH ×2 (09:34→22:19)
[2017-08-24] MEDS ORDERED: Insulin Detemir 100 units/ml Vial (Levemir) SC SCH (15:10)
--- NOTE | 2017-08-24 15:15 | CP.PCM.PN ---
Subjective - Date & Time of Evaluation Date of Evaluation: 08/24/17 Time of Evaluation: 15:11 - Subjective Subjective: PGY-[address] Saeed. No acute events noted overnight. Patient did not offer any physical complaints. Patient seemed quiet and withdrawn and after furthering questioning opened up and stated she's been feeling depressed lately. Denied urinary symptoms. Objective - Vital Signs/Intake and Output Vital Signs (last 24 hours): Temp Pulse Resp BP Pulse Ox 97.8 F 71 20 144/67 96 08/24/17 08:48 08/24/17 08:52 08/24/17 08:48 08/24/17 08:48 08/24/17 08:48 Intake and Output: 08/24/17 08/24/17 06:59 18:59 Intake Total 320 Balance 320 - Medications Medications: Current Medications Dextrose (Dextrose 50% Inj) 0 ml IV STAT PRN; Protocol PRN Reason: Hypoglycemia Protocol Dextrose (Glutose 15) 0 gm PO ONCE PRN; Protocol PRN Reason: Hypoglycemia Protocol Enoxaparin Sodium (Lovenox) 40 mg SC DAILY [facility] Last Admin: 08/24/17 09:33 Dose: 40 mg Glucagon (Glucagen Diagnostic Kit) 0 mg IM STAT PRN; Protocol PRN Reason: Hypoglycemia Protocol Dextrose (Dextrose 5% In Water 1000 Ml) 1,000 mls @ 0 mls/hr IV .Q0M PRN; Protocol; Per Protocol PRN Reason: Hypoglycemia Protocol Ciprofloxacin (Cipro 400mg/200ml Dsw) 400 mg in 200 mls @ 133 mls/hr IVPB Q12H BILL PRN Reason: Protocol Stop: 08/25/17 21:00 Last Admin: 08/24/17 06:09 Dose: 133 mls/hr Insulin Detemir (Levemir) 24 unit SC BID [facility] Insulin Human Regular (Novolin R) 0 unit SC ACHS BILL PRN Reason: Protocol Last Admin: 08/24/17 12:30 Dose: 8 units Lisinopril (Zestril) 20 mg PO DAILY [facility] Last Admin: 08/24/17 09:33 Dose: 20 mg Rosuvastatin Calcium (Crestor) 20 mg PO HS [facility] Last Admin: 08/23/17 22:08 Dose: 20 mg - Labs Labs: 08/24/17 07:41 06/21/18 07:41 - Additional Findings Additional findings: - Constitutional Appears: Non-toxic, No Acute Distress - Head Exam Head Exam: ATRAUMATIC, NORMAL INSPECTION - Eye Exam Eye Exam: EOMI, Normal appearance, PERRL Pupil Exam: NORMAL ACCOMODATION - ENT Exam ENT Exam: Mucous Membranes Moist - Respiratory Exam Respiratory Exam: Clear to Auscultation Bilateral, NORMAL BREATHING PATTERN - Cardiovascular Exam Cardiovascular Exam: REGULAR RHYTHM, +S1, +S2 - GI/Abdominal Exam GI & Abdominal Exam: Normal Bowel Sounds, Soft. absent: Tenderness - Extremities Exam Extremities exam: Positive for: normal capillary refill, normal inspection, pedal pulses present. Negative for: pedal edema, tenderness - Back Exam Back exam: absent: CVA tenderness (L), CVA tenderness (R) - Neurological Exam Neurological exam: Alert, CN II-XII Intact, Oriented x3 - Expanded Neurological Exam Expanded Patient oriented to: person, place, time Sensory exam: Lower Extremity Light Touch: Normal, Upper Extremity Light Touch: Normal Neuro motor strength exam: Left Upper Extremity: 5, Right Upper Extremity: 5, Left Lower Extremity: 5, Right Lower Extremity: 5 Coma Scale Eye Opening: SPONTANEOUS Coma Scale Motor Response: OBEYS COMMANDS - Psychiatric Exam Psychiatric exam: Normal Affect, Normal Mood - Skin Skin Exam: Normal Color Assessment and Plan - Assessment and Plan (Free Text) Assessment: Hyperglycemia, uncontrolled diabetes A1c 11.4 will hold home meds metformin 1000mg BID, glimepiride 4mg BID Levemir 24units BID Rosuvastatin 20mg PO HS accuchecks ACHS with sliding scale coverage Hypoglycemia protocol serum ketones negative UA with 3+ glucose anion gap 13 VBG pH 7.14 patient was acidotic on admission mod consistent carb diet diabetic education Depression Psychiatry consult, Dr Wilkins Will follow recs UTI, Resolved Urine culture 08/21 growing gram negative rods UA 08/21: positive for Nitrates with few bacteria Repeat UA 08/23 negative for Nitrates and rare bacteria Cipro 400mg IVP BID started 08/22/17 Chest pain, Resolved Patient states it has resolved Trop negative x3 EKG NSR @90bpm HTN continue home medications lisinopril 20mg daily ECHO (07/21): Normal bi-ventricular function; no significant valvular abnormality noted; no pericardial effusion; EF 65% HLD continue home medication crestor 20mg daily Lipid Panel Tri 08/22/17: Tri 210, LDL 142, HDL 32, LDL 142 Constipation Colace 100mg TID Prophylactic measure Lovenox 40mg SC daily SCDs Case discussed with Dr. Darlin Guerrero PGY-2
[2017-08-25] MEDS: Ciprofloxacin 400mg/200ml D5W 400 MG/200 ML BAG IVPB SCH (06:15)
[2017-08-25] MEDS: (Novolin R) Insulin Human Regular 100 units/ml vial SC SCH ×3 (08:02→17:30)
[2017-08-25 08:18] LABS: BASO % 0.6 % (0.0-2.0); EOS # 0.1 K/uL (0.0-0.7); EOS % 1.9 % (0.0-4.0); HEMOGLOBIN 12.3 g/dL (11.0-16.0); LYMPH # 1.2 K/uL (1.0-4.3); LYMPH % 24.8 % (20.0-40.0); MEAN CELL VOLUME 81.9 fL (81.0-99.0); MEAN CORPUSCULAR HEMOGLOBIN 27.9 pg (27.0-31.0); MEAN PLATELET VOLUME 8.4 fL (7.2-11.7); MONO # 0.4 K/uL (0.0-0.8); MONO % 8.1 % (0.0-10.0); NEUT # 3.1 K/uL (1.8-7.0); NEUT % 64.6 % (50.0-75.0); NRBC % 0.1 % (0.0-2.0); RBC 4.41 Mil/uL (3.80-5.20); RED CELL DISTRIBUTION WIDTH 13.1 % (11.5-14.5); WHITE BLOOD COUNT 4.7 K/uL (4.8-10.8)
[2017-08-25 08:33] LABS: ALB/GLOB RATIO 1.1 (1.0-2.1); ALT/SGPT 50 U/L (9-52); AST/SGOT 34 U/L (14-36); BLOOD UREA NITROGEN 11 mg/dL (7-17); CALCIUM 9.6 mg/dl (8.6-10.4); GFR AFRICAN-AMERICAN > 60; GFR NON-AFRICAN AMERICAN > 60
[2017-08-25] MEDS: Enoxaparin 40 mg Syringe SC SCH (10:29)
[2017-08-25] MEDS: Insulin Detemir 100 units/ml Vial (Levemir) SC SCH (10:30)
[2017-08-25] MEDS ORDERED: Insulin Detemir 100 units/ml Vial (Levemir) SC ONE (11:00)
--- NOTE | 2017-08-25 12:49 | PCM.PSYCH ---
Initial Psychiatric Evaluation - Initial Psychiatric Evaluation Type of Admission: Voluntary Legal Status: Capacity Chief Complaint (in patient's own words): I'm feeling down.' Current Medications: Active Medications Generic Name Dose Route Start Last Admin Trade Name Susan PRN Reason Stop Dose Admin Acetaminophen 650 mg 08/25/17 10:33 Tylenol 325mg Tab PO Q6 PRN Headache Dextrose 0 ml 08/21/17 20:59 Dextrose 50% Inj IV STAT PRN Hypoglycemia Protocol Protocol Dextrose 0 gm 08/21/17 20:59 Glutose 15 PO ONCE PRN Hypoglycemia Protocol Protocol Enoxaparin Sodium 40 mg 08/22/17 10:00 08/25/17 10:29 Lovenox SC 40 mg DAILY BILL Administration Glucagon 0 mg 08/21/17 20:59 Glucagen Diagnostic Kit IM STAT PRN Hypoglycemia Protocol Protocol Dextrose 1,000 mls @ 0 mls/hr 08/21/17 20:59 Dextrose 5% In Water 1000 Ml IV .Q0M PRN Hypoglycemia Protocol Protocol Per Protocol Ciprofloxacin 400 mg in 200 mls @ 133 mls/hr 08/22/17 19:00 08/25/17 06:15 Cipro 400mg/200ml Dsw IVPB 08/25/17 21:00 133 mls/hr Q12H BILL Administration Protocol Insulin Detemir 34 unit 08/25/17 22:00 Levemir SC Q12 BILL Insulin Human Regular 0 unit 08/21/17 22:00 08/25/17 12:29 Novolin R SC 8 units ACHS BILL Administration Protocol Lisinopril 20 mg 08/22/17 10:00 08/25/17 10:31 Zestril PO 20 mg DAILY BILL Administration Metformin HCl 1,000 mg 08/25/17 10:45 08/25/17 11:02 Glucophage PO 1,000 mg BID BILL Administration Rosuvastatin Calcium 20 mg 08/21/17 22:00 08/24/17 22:19 Crestor PO 20 mg HS BILL Administration Sitagliptin Phosphate 100 mg 08/25/17 10:45 08/25/17 11:02 Januvia PO 100 mg DAILY BILL Administration Past Psychiatric History - Past Psychiatric History Previous Treatment History: None Pertinent Medical Hx (Current Medical&Sleep Prob, Allergies): Allergies Allergy/AdvReac Type Severity Reaction Status Date / Time No Known Allergies Allergy Verified 08/21/17 15:57 Glyburide 0 mg PO DAILY 11/07/12 Metformin Hydrochloride [Metformin] 1,000 mg PO BID 11/07/12 Amlodipine Besylate [Norvasc] 5 mg PO DAILY #30 tablet 05/11/15 Insulin Detemir [Levemir] 34 unit SC Q12 unit 07/08/17 SITagliptin [Januvia] 100 mg PO DAILY #30 tab 07/08/17 Review of Systems - Review of Systems All systems: reviewed and no additional remarkable complaints except - Psychiatric Psychiatric: Anxiety, Irritability. absent: Suicidal Ideation Mental Status Examination - Personal Presentation Personal Presentation: Looks stated age - Affect Affect: Constricted, Depressed - Motor Activity Motor Activity: Calm - Reliability in Providing Information Reliability in Providing Information: Fair - Speech Speech: Organized - Mood Mood: Depressed - Formal Thought Process Formal Thought Process: No Impairment - Obsessions/Compulsions Obsessions: No Compulsions: No - Cognitive Functions Orientation: Person, Place, Situation, Time Sensorium: Alert Attention/Concentration: Attentive Abstract Thinking: [place] Estimate of Intelligence: Below average Judgement: Intact, as evidence by: Good judgement, Intact, as evidence by: Insight regarding need for hospitalization - Risk Risk: Diminished functioning - Strength & Assets Inventory Strength & Assets Inventory: Family support DSM 5 DX - DSM 5 DSM 5 Diagnosis: Major depressive disorder recurrent moderate - Recommended/Plan of Treatment Treatment Recommendations and Plan of Treatment: Patient psychiatrically stable and clear for discharge
[2017-08-25 15:57] VITALS: BP 117/74; PULSE 70; TEMP 98; O2SAT 97
--- NOTE | 2017-08-25 16:45 | CP.PCM.DIS ---
Provider - Provider Date of Admission: 08/21/17 18:15 Attending physician: Chris Saeed Jr, MD Primary care physician: CHERRI Saeed Consults: Psych: Dr Wilkins Time Spent in preparation of Discharge (in minutes): 37 Diagnosis - Discharge Diagnosis (1) Hyperglycemia Status: Chronic Priority: High (2) Diabetes mellitus Status: Chronic Priority: High Hospital Course - Lab Results Lab Results: Micro Results 08/21/17 16:55 Urine,Clean Catch Urine Culture - Final Escherichia Coli Most Recent Lab Values WBC 4.7 K/uL (4.8-10.8) L 08/25/17 08:04 RBC 4.41 Mil/uL (3.80-5.20) 08/25/17 08:04 Hgb 12.3 g/dL (11.0-16.0) 08/25/17 08:04 Hct 36.1 % (34.0-47.0) 08/25/17 08:04 MCV 81.9 fL (81.0-99.0) 08/25/17 08:04 MCH 27.9 pg (27.0-31.0) 08/25/17 08:04 MCHC 34.0 g/dL (33.0-37.0) 08/25/17 08:04 RDW 13.1 % (11.5-14.5) 08/25/17 08:04 Plt Count 235 K/uL (130-400) 08/25/17 08:04 MPV 8.4 fL (7.2-11.7) 08/25/17 08:04 Neut % (Auto) 64.6 % (50.0-75.0) 08/25/17 08:04 Lymph % (Auto) 24.8 % (20.0-40.0) 08/25/17 08:04 [place] % (Auto) 8.1 % (0.0-10.0) 08/25/17 08:04 Eos % (Auto) 1.9 % (0.0-4.0) 08/25/17 08:04 Baso % (Auto) 0.6 % (0.0-2.0) 08/25/17 08:04 Neut # (Auto) 3.1 K/uL (1.8-7.0) 08/25/17 08:04 Lymph # (Auto) 1.2 K/uL (1.0-4.3) 08/25/17 08:04 [place] # (Auto) 0.4 K/uL (0.0-0.8) 08/25/17 08:04 Eos # (Auto) 0.1 K/uL (0.0-0.7) 08/25/17 08:04 Baso # (Auto) 0.0 K/uL (0.0-0.2) 08/25/17 08:04 pO2 89 mm/Hg (30-55) H 08/21/17 16:50 VBG pH 7.14 (7.32-7.43) L* 08/21/17 16:50 VBG pCO2 70 mmHg (40-60) H* 08/21/17 16:50 VBG HCO3 19.8 mmol/L 08/21/17 16:50 VBG Total CO2 25.9 mmol/L (22-28) 08/21/17 16:50 VBG O2 Sat (Calc) 97.5 % (40-65) H 08/21/17 16:50 VBG Base Excess -6.5 mmol/L (0.0-2.0) L 08/21/17 16:50 VBG Potassium > 20.0 mmol/L (3.6-5.2) H* 08/21/17 16:50 Sodium 128.0 mmol/l (132-148) L 08/21/17 16:50 Chloride 102.0 mmol/L (98-107) 08/21/17 16:50 Glucose 436 mg/dl (65-105) H* 08/21/17 16:50 Lactate 2.5 mmol/L (0.7-2.1) H 08/21/17 16:50 FiO2 21.0 % 08/21/17 16:50 Crit Value Called To Dr alonso 08/21/17 16:50 Crit Value Called By Raffy sanidad 08/21/17 16:50 Crit Value Read Back Y 08/21/17 16:50 Blood Gas Notified Time 1656 08/21/17 16:50 Sodium 143 mmol/L (132-148) 08/25/17 08:04 Potassium 4.4 mmol/L (3.6-5.2) 08/25/17 08:04 Chloride 104 mmol/L (98-107) 08/25/17 08:04 Carbon Dioxide 29 mmol/L (22-30) 08/25/17 08:04 Anion Gap 15 (10-20) 08/25/17 08:04 BUN 11 mg/dL (7-17) 08/25/17 08:04 Creatinine 0.7 mg/dL (0.7-1.2) 08/25/17 08:04 Est GFR ( Amer) > 60 08/25/17 08:04 Est GFR (Non-Af Amer) > 60 08/25/17 08:04 POC Glucose (mg/dL) 346 mg/dL (65-110) H 08/25/17 11:34 Random Glucose 294 mg/dL (65-105) H 08/25/17 08:04 Hemoglobin A1c 11.4 % (4.2-6.5) H 08/22/17 07:52 Calcium 9.6 mg/dl (8.6-10.4) 08/25/17 08:04 Phosphorus 3.7 mg/dL (2.5-4.5) 08/24/17 07:41 Magnesium 1.8 mg/dL (1.6-2.3) 08/24/17 07:41 Total Bilirubin 0.9 mg/dL (0.2-1.3) 08/25/17 08:04 AST 34 U/L (14-36) 08/25/17 08:04 ALT 50 U/L (9-52) 08/25/17 08:04 Alkaline Phosphatase 92 U/L (38-126) 08/25/17 08:04 Total Creatine Kinase 53 U/L (30-135) 08/21/17 16:39 CK-MB (Mass) 0.68 ng/mL (0.0-3.38) 08/21/17 16:39 Troponin I < 0.0120 ng/mL (0.00-0.120) 08/22/17 07:52 Total Protein 7.6 g/dL (6.3-8.3) 08/25/17 08:04 Albumin 4.0 g/dL (3.5-5.0) 08/25/17 08:04 Globulin 3.6 gm/dL (2.2-3.9) 08/25/17 08:04 Albumin/Globulin Ratio 1.1 (1.0-2.1) 08/25/17 08:04 Triglycerides 210 mg/dL (0-149) H 08/22/17 07:52 Cholesterol 194 mg/dL (0-199) 08/22/17 07:52 LDL Cholesterol Direct 142 mg/dL (0-129) H 08/22/17 07:52 HDL Cholesterol 32 mg/dL (30-70) 08/22/17 07:52 Lipase 295 U/L (23-300) 08/21/17 16:39 Venous Blood Potassium > 20.0 mmol/L (3.6-5.2) H* 08/21/17 16:50 Urine Color Straw (YELLOW) 08/23/17 20:03 Urine Clarity Clear (Clear) 08/23/17 20:03 Urine pH 7.0 (5.0-8.0) 08/23/17 20:03 Ur Specific [place] 1.010 (1.003-1.030) 08/23/17 20:03 Urine Protein 1+ mg/dL (NEGATIVE) H 08/23/17 20:03 Urine Glucose (UA) 3+ mg/dL (Normal) H 08/23/17 20:03 Urine Ketones Negative mg/dL (NEGATIVE) 08/23/17 20:03 Urine Blood Negative (NEGATIVE) 08/23/17 20:03 Urine Nitrate Negative (NEGATIVE) 08/23/17 20:03 Urine Bilirubin Negative (NEGATIVE) 08/23/17 20:03 Urine Urobilinogen Normal mg/dL (0.2-1.0) 08/23/17 20:03 Ur Leukocyte Esterase Neg Jennyfer/uL (Negative) 08/23/17 20:03 Urine WBC (Auto) 2 /hpf (0-5) 08/23/17 20:03 Urine RBC (Auto) < 1 /hpf (0-3) 08/23/17 20:03 Ur Squamous Epith Cells 1 /hpf (0-5) 08/23/17 20:03 Urine Bacteria Rare (<OCC) 08/23/17 20:03 B-Hydroxybutyrate 0.13 mM (0.02-0.27) 08/21/17 16:39 - Hospital Course Hospital Course: cc: "My sugar was high" HPI: Patient is a 51 year old female with past medical history DM, HTN, HLD, arthritis who presents to the ED with complaint of elevated blood sugar. Patient states she checked her blood sugar yesterday and it was elevated to about 598. She did not take any insulin today. She states when her blood sugar is elevated she has dizziness and confusion. She states she had an appointment with Dr. Saeed today but because of her symptoms her friend brought her to the ER. Patient complains of headache, dry mouth, increased thirst and more frequent urination. Patient denies polyphagia. Patient also admits constipation and back pain. Her last bowel movement was today but she has constipation daily. She has never had a colonoscopy. She states she tried to eat healthy but because of her increased stress at work she does not always eat properly. Patient states she knows she is not a compliant patient but she was going to see Dr. Saeed to receive medication refills. Patient states she did not take any medications today. PMD: Dr. Saeed PMHx: DM, HTN, HLD, arthritis, cataracts Medications: crestor 20mg, lisinopril 20mg, metformin 1000mg BID, levemir flex pen not sure about how many units per day, glimepiride 4mg BID Allergies: NKDA Past Surgical History: lumbar spinal fusion, tubal ligation, hysterectomy, wrist surgery Family History: Mother - DM and HTN due to renal failure; Father with HTN, DM - due to CHF; brother passed due to stomach cancer Social History: denies smoking, alcohol, or illicit drug use. 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 HOSPITAL COURSE: Mrs Isaacs was admitted for hyperglycemia due to uncontrolled diabetes. She was started on levemir and regular insulin. Her A1c was 11.4. It was determined she was taking her insulin incorrectly at home - she was taking the short acting in unusual dosages. She was acidotic on admission which resolved with fluids and better control of her sugars. She had an asymptomatic UTI - urine cultures were positive for ecoli. Given her diabetic status she was started on cipro. A repeat UA showed the resolution of her UTI. In addition, she endorsed feeling depressed after the passing of her daughter. Psych was consulted which had a discussion with the patient. The latest progress note is included below for specifics regarding management: Hyperglycemia, uncontrolled diabetes A1c 11.4 will hold home meds metformin 1000mg BID, glimepiride 4mg BID Levemir 24units BID Rosuvastatin 20mg PO HS accuchecks ACHS with sliding scale coverage Hypoglycemia protocol serum ketones negative UA with 3+ glucose anion gap 13 VBG pH 7.14 patient was acidotic on admission mod consistent carb diet diabetic education Depression Psychiatry consult, Dr Wilkins Will follow recs UTI, Resolved Urine culture 08/21 growing gram negative rods UA 08/21: positive for Nitrates with few bacteria Repeat UA 08/23 negative for Nitrates and rare bacteria Cipro 400mg IVP BID started 08/22/17 Chest pain, Resolved Patient states it has resolved Trop negative x3 EKG NSR @90bpm HTN continue home medications lisinopril 20mg daily ECHO (07/21): Normal bi-ventricular function; no significant valvular abnormality noted; no pericardial effusion; EF 65% HLD continue home medication crestor 20mg daily Lipid Panel Tri 08/22/17: Tri 210, LDL 142, HDL 32, LDL 142 Constipation Colace 100mg TID Prophylactic measure Lovenox 40mg SC daily SCDs Discharge Exam - Head Exam Head Exam: ATRAUMATIC, NORMAL INSPECTION - Additional Findings Additional findings: - Constitutional Appears: Non-toxic, No Acute Distress - Head Exam Head Exam: ATRAUMATIC, NORMAL INSPECTION - Eye Exam Eye Exam: EOMI, Normal appearance, PERRL Pupil Exam: NORMAL ACCOMODATION - ENT Exam ENT Exam: Mucous Membranes Moist - Respiratory Exam Respiratory Exam: Clear to Auscultation Bilateral, NORMAL BREATHING PATTERN - Cardiovascular Exam Cardiovascular Exam: REGULAR RHYTHM, +S1, +S2 - GI/Abdominal Exam GI & Abdominal Exam: Normal Bowel Sounds, Soft. absent: Tenderness - Extremities Exam Extremities exam: Positive for: normal capillary refill, normal inspection, pedal pulses present. Negative for: pedal edema, tenderness - Back Exam Back exam: absent: CVA tenderness (L), CVA tenderness (R) - Neurological Exam Neurological exam: Alert, CN II-XII Intact, Oriented x3 - Expanded Neurological Exam Expanded Patient oriented to: person, place, time Sensory exam: Lower Extremity Light Touch: Normal, Upper Extremity Light Touch: Normal Neuro motor strength exam: Left Upper Extremity: 5, Right Upper Extremity: 5, Left Lower Extremity: 5, Right Lower Extremity: 5 Coma Scale Eye Opening: SPONTANEOUS Coma Scale Motor Response: OBEYS COMMANDS - Psychiatric Exam Psychiatric exam: Normal Affect, Normal Mood - Skin Skin Exam: Normal Color Discharge Plan - Discharge Medications Prescriptions: Glyburide [Micronase] 1.25 mg PO DAILY #30 tab Insulin Detemir [Levemir] 34 unit SC Q12 #1 vial Lisinopril [Zestril] 20 mg PO ONCE #30 tab metFORMIN [glucOPHAGE] 1,000 mg PO BID 30 Days tab Rosuvastatin Calcium [Crestor] 20 mg PO HS #30 tab SITagliptin [Januvia] 100 mg PO DAILY #30 tab - Follow Up Plan Condition: FAIR Disposition: HOME/ ROUTINE Additional Instructions: You are medically stable for discharge. You will be given scripts for the following medications. It is very important that you check your sugars daily and take your insulin as directed. 1. Glyburide 1.25mg take 1 tablet in the afternoon 2. Levemir 34 units in the morning and in the evening 3. Lisinopril 20mg take 1 tablet at bedtime 4. Metformin 1000mg take 1 tablet in the morning and 1 tablet in the evening 5. Sitagliptin 100mg take 1 tablet in the morning 6. Rosuvastatin 20mg take 1 tablet before bedtime 7. Aspirin 81mg take 1 tablet daily You already have humalin which is a short acting insulin that you can take AFTER meals if your sugars are very high. The other insulin Levemir is a long acting insulin which is used to control the sugars in the long-term. Please make an appointment with Dr Saeed and see him in 7 days and review these medications with him. If symptoms return please go to your nearest emergency department. Referrals: Chris Saeed Jr., MD [Medical Doctor] -
[2017-08-25] MEDS ORDERED: Insulin Detemir 100 units/ml Vial (Levemir) SC SCH (22:00)
== END 2017-08-25 17:49 | disposition home or self-care (01) ==
LOC: C.ER 15:45 → C.9E 18:15 → C.6T 19:04
PROVIDERS: ADMIT Internal Medicine; ATTEND Internal Medicine
DX: E11.65 Type 2 diabetes mellitus with hyperglycemia (principal); E78.00 Pure hypercholesterolemia, unspecified; I10 Essential (primary) hypertension; F33.1 Major depressive disorder, recurrent, moderate; Z79.4 Long term (current) use of insulin; E87.2 Acidosis; K59.00 Constipation, unspecified; N39.0 Urinary tract infection, site not specified; B96.20 Unspecified Escherichia coli [E. coli] as the cause of diseases classified elsewhere; Z86.73 Personal history of transient ischemic attack (TIA), and cerebral infarction without residual deficits
CPT/HCPCS: 36415; 71045; 80053; 80061; 81001; 82009; 82550; 82553; 82803; 82948; 83036; 83690; 83735; 84100; 84484; 85025; 87086; 87181; 93005; 96361; 96365; 96366; 96372; 99285; G0378; J0744; J1650; J7030; J7040